=== PATIENT | male | born 1980 | race Caucasian/White ===

== ENCOUNTER 2017-07-16 10:43 | Emergency (ER) | payer OTHER, MEDICAID ==
[2017-07-16 10:48] VITALS: TEMP 97.5
--- NOTE | 2017-07-16 11:14 | CPEKG ---
Heart Rate: 91 RR Interval: 659 P-R Interval: 140 QRSD Interval: 84 QT Interval: 360 QTC Interval: 443 P [place]: 57 QRS [place]: 41 T Wave [place]: 10 EKG Severity - NORMAL ECG - EKG Impression: SINUS RHYTHM Electronically Signed By: Josue Hobbs 16-Jul-2017 11:16:51
[2017-07-16] MEDS ORDERED: ONDANSETRON 4 MG/2 ML VIAL ONE (11:18)
[2017-07-16] MEDS ORDERED: ONDANSETRON 4 MG/2 ML VIAL IVP ONE (11:19)
[2017-07-16 11:29] LABS: PLATELET COUNT 251 10^3/uL (150-400)
[2017-07-16] MEDS ORDERED: IOPAMIDOL (ISOVUE 370) 100 ML BTL IV ONE (12:35)
[2017-07-16] MEDS ORDERED: HYOSCYAMINE SULFATE 0.125 MG TAB PO ONE (13:49)
[2017-07-16] MEDS ORDERED: LIDOCAINE 2% VISCOUS 15 ML UDCUP PO ONE (13:49)
[2017-07-16] MEDS ORDERED: MAG HYDROX/AL HYDROX/SIMETH 30 ML UDCUP PO ONE (13:49)
[2017-07-16 13:56] VITALS: O2SAT 96
--- NOTE | 2017-07-16 13:57 | EDPHY ---
H & P Stated Complaint: chest and back pain and SOB starting at 0530 - Personal History Current Tetanus/Diphtheria Vaccine: Yes Current Tetanus Diphtheria and Acellular Pertussis (TDAP): Yes Tetanus Vaccine Date: < 10 years - Medical/Surgical History Hx Asthma: No Hx Chronic Respiratory Disease: No Hx Diabetes: No Hx Cardiac Disease: No Hx Renal Disease: No Hx Cirrhosis: No Hx Alcoholism: No Hx HIV/AIDS: No Hx Splenectomy or Spleen Trauma: No Other PMH: lung issues. depression, PTSD - Social History Smoking Status: Current every day smoker Time Seen by Provider: 07/16/17 10:54 HPI/ROS: Chief complaint: Chest pain History of present illness: This is a 37-year-old male who presents to the emergency department for evaluation of chest pain. He reports the onset of symptoms this morning. In addition to the pain in his chest he has some back pain between his scapula. He has had associated shortness of breath. He denies precipitating factors. He denies alleviating or aggravating factors. He describes it as a squeezing pain. He denies other associated signs or symptoms including no fevers, no cold symptoms, no nausea or vomiting, no pain or swelling in the legs. He has never had similar. Review of systems: A 10 point review of systems was obtained and other than described above was negative (Simone Renee) - Physical Exam Exam: General Appearance: Alert, nontoxic. Eyes: Pupils equal and round no pallor or injection. ENT, Mouth: Mucous membranes moist. Respiratory: There are no retractions, lungs are clear to auscultation. Cardiovascular: Regular rate and rhythm. Gastrointestinal: Abdomen is soft and non tender, no masses, bowel sounds normal. Neurological: Alert and oriented x4. Cranial nerves 2-12 grossly intact. Strength and sensation intact and symmetrical. Skin: Warm and dry, no rashes. Musculoskeletal: Neck is supple non tender. Extremities are symmetrical, full range of motion. Psychiatric: Patient is oriented X 3, there is no agitation. (Simone Renee) Constitutional: Initial Vital Signs Temperature (C) 36.4 C 07/16/17 10:45 Heart Rate 88 07/16/17 10:45 Respiratory Rate 20 07/16/17 10:45 Blood Pressure 123/81 H 07/16/17 10:45 O2 Sat (%) 97 07/16/17 10:45 O2 Delivery Mode Room Air Allergies/Adverse Reactions: No Known Allergies Allergy (Unverified 07/16/17 10:45) Home Medications: Medication Instructions Recorded Prozac 20 MG (*) 07/16/17 Seroquel 07/16/17 Medical Decision Making - Diagnostics Imaging: Discussed imaging studies w/ inbound call center representative Radiologist - Diagnostics EKG Interpretation: EKG: Complete interpretation has been separately recorded in the [employer] archive. Summary impression: Sinus rhythm, rate 91 (Josue Hobbs) Imaging Results: Imaging Impressions Chest X-Ray 07/16/17 11:00 Impression: Normal chest x-ray. Chest/Thorax CTA 07/16/17 12:18 Impression: 1. No evidence of pulmonary embolus using CT protocol. 2. Thickening and distention of the esophagus. Consider underlying reflux and esophagitis. 3. Mild anterior wedging superior endplate of T5, T6, and T8. Clinical correlation recommended with respect to any prior trauma to account for these findings. If indicated, consider DEXA scan at some point to evaluate underlying bone mineral density. Findings discussed with MARIELLE Suero at 13:08 hour, 07/16/2017. ED Course/Re-evaluation: Patient is discussed with my secondary supervising physician Dr. Vic Hobbs. Patient presents to the emergency department for chest and back discomfort. He is nontoxic. Vital signs are stable. Initial blood studies are unremarkable except D-dimer which is elevated. A CTA is performed. He does have a thickened esophagus I do believe this would be consistent with his symptoms. Some mild wedging of T5, T6, T8. He denies any actual spine pain. No history of recent trauma. He is given a GI cocktail with improvement in symptoms. He will be discharged home. Asked to take Zantac regularly. He is asked to follow up with a primary care doctor for recheck. Return precautions are given. (Simone Renee) Differential Diagnosis: Included but not limited to reflux, esophagitis, pulmonary infections, pneumothorax, cardiac dysrhythmia, ACS, pulmonary embolism (Simone Renee) - Data Points Laboratory Results: Laboratory Results 07/16/17 11:20 07/16/17 11:20 07/16/17 07/16/17 07/16/17 11:20 11:20 11:20 WBC 11.10 10^3/uL H 10^3/uL (3.80-9.50) RBC 5.32 10^6/uL 10^6/uL (4.40-6.38) Hgb 13.7 g/dL g/dL (13.7-17.5) Hct 41.2 % % (40.0-51.0) MCV 77.4 fL L fL (81.5-99.8) MCH 25.8 pg L pg (27.9-34.1) MCHC 33.3 g/dL g/dL (32.4-36.7) RDW 16.0 % H % (11.5-15.2) Plt Count 251 10^3/uL 10^3/uL (150-400) MPV 10.6 fL fL (8.7-11.7) Neut % (Auto) 72.3 % % (39.3-74.2) Lymph % (Auto) 16.9 % % (15.0-45.0) [place] % (Auto) 9.2 % % (4.5-13.0) Eos % (Auto) 0.6 % % (0.6-7.6) Baso % (Auto) 0.3 % % (0.3-1.7) Nucleat RBC Rel Count 0.0 % % (0.0-0.2) Absolute Neuts (auto) 8.02 10^3/uL H 10^3/uL (1.70-6.50) Absolute Lymphs (auto) 1.88 10^3/uL 10^3/uL (1.00-3.00) Absolute Monos (auto) 1.02 10^3/uL H 10^3/uL (0.30-0.80) Absolute Eos (auto) 0.07 10^3/uL 10^3/uL (0.03-0.40) Absolute Basos (auto) 0.03 10^3/uL 10^3/uL (0.02-0.10) Absolute Nucleated RBC 0.00 10^3/uL 10^3/uL (0-0.01) Immature Gran % 0.7 % % (0.0-1.1) Immature Gran # 0.08 10^3/uL 10^3/uL (0.00-0.10) D-Dimer 2.51 ug/mLFEU H ug/mLFEU (0.00-0.50) Sodium 142 mEq/L mEq/L (135-145) Potassium 3.8 mEq/L mEq/L (3.5-5.2) Chloride 103 mEq/L mEq/L (97-110) Carbon Dioxide 25 mEq/l mEq/l (22-31) Anion Gap 14 mEq/L mEq/L (8-16) BUN 24 mg/dL H mg/dL (7-23) Creatinine 1.1 mg/dL mg/dL (0.7-1.3) Estimated GFR > 60 Glucose 98 mg/dL mg/dL (70-100) Calcium 8.8 mg/dL mg/dL (8.5-10.4) Troponin I < 0.012 ng/mL ng/mL (0.000-0.034) Medications Given: Discontinued Medications Al Hydroxide/Mg Hydroxide (Maalox Susp) 30 ml PO ONCE ONE Stop: 07/16/17 13:50 Last Admin: 07/16/17 13:53 Dose: 30 ml Hyoscyamine Sulfate (Levsin, Hyomax-Sl) 0.25 mg PO ONCE ONE Stop: 07/16/17 13:50 Last Admin: 07/16/17 13:54 Dose: 0.25 mg Lidocaine (Lidocaine 2% Viscous) 15 ml PO ONCE ONE Stop: 07/16/17 13:50 Last Admin: 07/16/17 13:54 Dose: 15 ml Morphine Sulfate (Morphine) 4 mg IVP EDNOW ONE Stop: 07/16/17 11:02 Last Admin: 07/16/17 11:20 Dose: 4 mg Morphine Sulfate (Morphine) 4 mg IVP EDNOW ONE Stop: 07/16/17 12:03 Last Admin: 07/16/17 12:11 Dose: 4 mg Ondansetron HCl (Zofran) 4 mg IVP EDNOW ONE Stop: 07/16/17 11:20 Last Admin: 07/16/17 11:20 Dose: 4 mg Departure - Departure Disposition: Home, Routine, Self-Care Clinical Impression: Chest pain Condition: Good Instructions: Chest Pain (ED) Additional Instructions: Follow-up with your primary care doctor for recheck. Please have them recheck all findings from the emergency room Take Zantac 150 mg twice daily for the next 2 weeks If symptoms worsen or new symptoms develop return to the emergency room for recheck Referrals: [facility],. [Primary Care Provider] - As per Instructions
[2017-07-16 14:08] VITALS: BP 111/79; PULSE 87; RESP 18
== END 2017-07-16 14:08 | disposition home or self-care (01) ==
DX: R07.9 Chest pain, unspecified (principal); F17.200 Nicotine dependence, unspecified, uncomplicated
CPT/HCPCS: 96374; J2270; J2405; Q9967

== ENCOUNTER 2017-07-18 14:33 | Emergency (ER) | payer OTHER, MEDICAID ==
[2017-07-18 14:43] VITALS: BP 122/65; PULSE 84; RESP 16; TEMP 98.6; O2SAT 94
--- NOTE | 2017-07-18 15:58 | EDPHY ---
H & P Time Seen by Provider: 07/18/17 15:49 HPI/ROS: CHIEF COMPLAINT: Continued thoracic back pain HISTORY OF PRESENT ILLNESS: 29-year-old male seen emergency department 2 days ago for complaints of thoracic back pain and chest pain which of he had an elevated D-dimer, subsequently had CT angiography of the chest which was negative for PE or vasculopathy. He has been taking ibuprofen with mild relief of symptoms. Complaining of thoracic back pain in the paraspinous region which is reproducible with movement. Nonpleuritic. No trauma. No syncope no near syncope. No peripheral paresthesia, weakness, numbness. 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 Appears uncomfortable when he is asked to sit up.. 2) HEAD: Normocephalic, atraumatic 3) HEENT: Pupils equal, round, reactive to light bilaterally. Sclera anicteric. 4) NECK: Full range of motion, no meningeal signs. 5) LUNGS: Clear auscultation bilaterally, no wheezes, no rhonchi, no retractions. 6) HEART: Regular rate and rhythm, no murmur, no heave, no gallop. 7) ABDOMEN: No guarding, no rebound, no focal tenderness n, 8) MUSCULOSKELETAL: Moving all extremities, no focal areas of tenderness, no obvious trauma. No peripheral edema or discoloration. 9) BACK: No CVA tenderness, no midline vertebral tenderness, no fluctuance, no step-off, no obvious trauma, no visual or palpable abnormality. 10) SKIN: No rash, no petechiae. 11) Psychiatric: Patient is oriented X 3, there is no agitation. 12) NEURO: Awake, alert, and oriented to person, place and time. Answers questions appropriately. There were no obvious focal neurologic abnormalities. No cerebellar dysfunction. Normal steady gait. Upper and lower extremities bilaterally with strength 5 / 5, reflexes 2+. DIFFERENTIAL DIAGNOSIS: In no particular include but limited to spinal infectious etiology, acute muscular strain, discogenic etiology Smoking Status: Current every day smoker Constitutional: Initial Vital Signs Temperature (C) 37 C 07/18/17 14:40 Heart Rate 84 07/18/17 14:40 Respiratory Rate 16 07/18/17 14:40 Blood Pressure 122/65 H 07/18/17 14:40 O2 Sat (%) 94 07/18/17 14:40 O2 Delivery Mode Room Air Allergies/Adverse Reactions: No Known Allergies Allergy (Verified 07/18/17 14:38) Home Medications: Medication Instructions Recorded Prozac 20 MG (*) 07/16/17 Seroquel 07/16/17 Cyclobenzaprine [Flexeril 10 MG 10 mg PO TID #15 tab 07/18/17 (RX)] Lidocaine [Lidoderm] 1 each TP BID #30 adh..patch 07/18/17 MDM/Departure - [facility] ED Course/Re-evaluation: 3:54 p.m.: I reviewed the patient's old medical records including his imaging studies. He had CT angiography of the chest 2 days ago showing no acute abnormality, no evidence of dissection or pulmonary embolus. On exam in the ER today he has no midline thoracic spine pain. He is tender to palpation bilateral paraspinous thoracic region. Discussed his wedge abnormalities seen on CT scan however absence of midline pain I think that this is less than likely specific etiology of his pain.We discussed that I think his symptoms arm more than likely secondary to acute muscular strain. Plan will be discharged with Lidoderm patches, Flexeril, cold packs and follow up at [facility]. He feels comfortable with this plan. All questions and concerns addressed by myself. Care of patient under supervision of secondary supervising physician Dr Paz. - Depart Disposition: Home, Routine, Self-Care Clinical Impression: Strain of muscle and tendon of back wall of thorax, initial encounter Condition: Good Instructions: Thoracic Back Strain (ED) Additional Instructions: Seek medical attention if you develop new or worsening pain, if you develop bladder or bowel dysfunction, numbness around your perineum, foot drop, or any other symptoms that concern you. Prescriptions: Cyclobenzaprine [Flexeril 10 MG (RX)] 10 mg PO TID #15 tab Lidocaine [Lidoderm] 1 each TP BID #30 adh..patch Referrals: [facility] [Provider Group] - 2-3 days, call for appt.
== END 2017-07-18 16:15 | disposition home or self-care (01) ==
DX: S29.012A Strain of muscle and tendon of back wall of thorax, initial encounter (principal); F17.200 Nicotine dependence, unspecified, uncomplicated; X58.XXXA Exposure to other specified factors, initial encounter

== ENCOUNTER 2017-08-03 09:11 | Emergency (ER) | payer MEDICAID ==
--- NOTE | 2017-08-03 09:17 | EDPHY ---
HPI/HX/ROS/PE/MDM Narrative: CHIEF COMPLAINT: Seizure HPI: This patient is a 37 year old male arriving via EMS following a witnessed seizure this morning. His heard a crashing sound, which woke her from sleep. She found the patient rigid on the ground with tonic-clonic seizure activity. This lasted about 3.5 to 4 minutes. She states that as he became less rigid, he continued "seizing and grunting" for another minute. The patient had an episode last night of confusion and disorientation while at work, and he is not sure if he had another seizure at that time. He was evaluated 20 years ago at age 18 for possible seizures for which he took antiepileptics, but a neurologist at that time found no evidence of seizure disorder and he was taken off his seizure medication. Currently, the patient continues to feel slightly confused. He denies benzodiazepine or alcohol use. Per EMS report, BGL was within normal limits, vitals stable in transport.He denies fever, headache, neck pain, chest pain, shortness of breath, weakness, or other associated symptoms. REVIEW OF SYSTEMS: Aside from elements discussed in the HPI, a comprehensive 10-point review of systems was reviewed and is negative. PMH: Depression, PTSD (Seroquel, Prozac). SOCIAL HISTORY: . at bedside. Recently moved to [place]. Employed. PHYSICAL EXAM: General:Patient is alert, in no acute distress. ENT:Eyes are normal to inspection. Lateral tongue abrasions. ENT inspection otherwise normal. Neck: Normal inspection. Full range of motion. Respiratory:No respiratory distress. Breath sounds normal bilaterally. Cardiovascular: Regular rate and rhythm. Strong peripheral pulses. Normal cap refill. Abdomen:The abdomen is nontender to palpation. There are no peritoneal signs. There are normal bowel sounds. Back: Normal to inspection. No tenderness to palpation. Skin: Normal color. No rash. Warm and dry. Extremities: Normal appearance. Full range of motion. Neuro: Oriented x3. Normal motor function. Normal sensory function. ED Course: 09:15 Met EMS at bedside. 37 y/o male presents following witnessed tonic-clonic seizure activity this morning. Exam reveals lateral tongue abrasions. Plan for CT head. Plan for EKG, labs including CBC, chemistries, troponin. IV established. Plan to administer 1L IV NS. EKG was ordered and interpreted by myself. Please see [employer] system for official reading. Sinus tachycardia, borderline T abnormalities in inferior leads. 09:[address] Pitt, radiologist. CT head negative for acute processes. 10:00 Plan to administer 600mg PO Ibuprofen for pain relief. Reviewed laboratory studies. Troponin negative. Plan to consult with neurologist cardiology consultants prior to patient discharge. 11:[address] Yeboah, neurologist. We disussed the fact that patient had previously been on an antiepileptic. He will follow up with this patient in an outpatient setting. He does not recommending starting medication for seizure prevention at this time. Reassessed patient and discussed results. Plan to discharge patient home in good condition. He will follow up up with neurology as above. Return precautions discussed. He is comfortable with this plan. MDM: This patient presents with witnessed tonic-clonic seizure in setting of previous history of seizures, not currently on meds. CTH is negative for abnormalities. Patient has returned to normal mental status and there are no signs of trauma. I think he is safe for outpatient management. He was advised not to drive etc. - Data Points Imaging Results: Imaging Impressions Head CT 08/03/17 09:18 Impression: 1. Head CT within normal limits. No seizure focus identified. 2. Right maxillary sinus air-fluid level of undetermined etiology. Results called and discussed with Guillermo Salinas MD, at 08/03/2017 9:47 General information for patients regarding this examination can be found at [email or web address]. If you have questions or comments about this report, please contact me at (hospital) or [phone] (cell). Imaging: Discussed imaging studies w/ budget assistant Radiologist Laboratory Results: Laboratory Results 08/03/17 09:15 08/03/17 09:15 08/03/17 08/03/17 09:15 09:15 WBC 11.20 10^3/uL H 10^3/uL (3.80-9.50) RBC 5.24 10^6/uL 10^6/uL (4.40-6.38) Hgb 13.7 g/dL g/dL (13.7-17.5) Hct 43.2 % % (40.0-51.0) MCV 82.4 fL fL (81.5-99.8) MCH 26.1 pg L pg (27.9-34.1) MCHC 31.7 g/dL L g/dL (32.4-36.7) RDW 16.2 % H % (11.5-15.2) Plt Count 277 10^3/uL 10^3/uL (150-400) MPV 10.4 fL fL (8.7-11.7) Neut % (Auto) 72.5 % % (39.3-74.2) Lymph % (Auto) 17.3 % % (15.0-45.0) [place] % (Auto) 6.4 % % (4.5-13.0) Eos % (Auto) 1.8 % % (0.6-7.6) Baso % (Auto) 0.4 % % (0.3-1.7) Nucleat RBC Rel Count 0.0 % % (0.0-0.2) Absolute Neuts (auto) 8.11 10^3/uL H 10^3/uL (1.70-6.50) Absolute Lymphs (auto) 1.94 10^3/uL 10^3/uL (1.00-3.00) Absolute Monos (auto) 0.72 10^3/uL 10^3/uL (0.30-0.80) Absolute Eos (auto) 0.20 10^3/uL 10^3/uL (0.03-0.40) Absolute Basos (auto) 0.05 10^3/uL 10^3/uL (0.02-0.10) Absolute Nucleated RBC 0.00 10^3/uL 10^3/uL (0-0.01) Immature Gran % 1.6 % H % (0.0-1.1) Immature Gran # 0.18 10^3/uL H 10^3/uL (0.00-0.10) Sodium 144 mEq/L mEq/L (135-145) Potassium 4.4 mEq/L mEq/L (3.5-5.2) Chloride 104 mEq/L mEq/L (97-110) Carbon Dioxide 17 mEq/l L mEq/l (22-31) Anion Gap 23 mEq/L H mEq/L (8-16) BUN 24 mg/dL H mg/dL (7-23) Creatinine 1.1 mg/dL mg/dL (0.7-1.3) Estimated GFR > 60 Glucose 133 mg/dL H mg/dL (70-100) Calcium 8.7 mg/dL mg/dL (8.5-10.4) Troponin I < 0.012 ng/mL ng/mL (0.000-0.034) Medications Given: Discontinued Medications Sodium Chloride (Ns) 1,000 mls @ 0 mls/hr IV ONCE ONE PRN Reason: Wide Open Stop: 08/03/17 09:24 Last Admin: 08/03/17 09:24 Dose: 1,000 mls Ibuprofen (Motrin) 600 mg PO EDNOW ONE Stop: 08/03/17 10:01 Last Admin: 08/03/17 10:45 Dose: 600 mg General Initial Vital Signs: Initial Vital Signs Temperature (C) 36.6 C 08/03/17 09:13 Heart Rate 120 H 08/03/17 09:13 Respiratory Rate 18 08/03/17 09:13 Blood Pressure 134/86 H 08/03/17 09:13 O2 Sat (%) 95 08/03/17 09:13 O2 Delivery Mode Room Air Allergies/Adverse Reactions: No Known Allergies Allergy (Verified 07/18/17 14:38) Home Medications: Medication Instructions Recorded Prozac 20 MG (*) 07/16/17 Seroquel 07/16/17 Departure - Departure Disposition: Home, Routine, Self-Care Clinical Impression: Seizure Condition: Good Instructions: New-Onset Seizure in Adults (ED) Additional Instructions: 1. Follow-up with a neurologist within 72 hours. Additional testing will likely need to be done for evaluation of your seizure. 2. Return to the Emergency Department for recurrent seizure, fever, headache, confusion, numbness, weakness, or other concerns. 3. No driving or dangerous activity such as swimming in a pool or riding a ski lift which could put you or someone else a danger in the event of recurrent seizure until you are cleared by a neurologist. Referrals: Kieran Yeboah DO [Doctor of Osteopathy] - As per Instructions Report Scribed for: Guillermo Salinas Report Scribed by: Kendal Beckett Date of Report: 08/03/17 Time of Report: 10:27 Physician Review and Approval Statement: Portions of this note were transcribed by an ED scribe. I personally performed the history, physical exam, and medical decision making; and confirm the accuracy of the information in the transcribed note.
--- NOTE | 2017-08-03 09:22 | CPEKG ---
Heart Rate: 113 RR Interval: 531 P-R Interval: 124 QRSD Interval: 82 QT Interval: 320 QTC Interval: 439 P Fraser: 56 QRS Fraser: 53 T Wave Fraser: -2 EKG Severity - BORDERLINE ECG - EKG Impression: SINUS TACHYCARDIA EKG Impression: BORDERLINE T ABNORMALITIES, INFERIOR LEADS Electronically Signed By: Matilde Paz 04-Aug-2017 22:44:22
[2017-08-03] MEDS ORDERED: NS 1,000 ML IV ONE (09:23)
[2017-08-03 09:26] LABS: PLATELET COUNT 277 10^3/uL (150-400)
[2017-08-03] MEDS ORDERED: IBUPROFEN 600 MG TAB PO ONE (10:00)
[2017-08-03 10:48] VITALS: BP 115/81
== END 2017-08-03 11:52 | disposition home or self-care (01) ==
LOC: EDUNIT#
DX: R56.9 Unspecified convulsions (principal)

== ENCOUNTER 2017-08-04 19:55 | Emergency (ER) | payer MEDICAID ==
--- NOTE | 2017-08-04 20:18 | EDPHY ---
H & P Time Seen by Provider: 08/04/17 19:56 HPI/ROS: CHIEF COMPLAINT: Sore all over, tongue swelling after seizure yesterday HISTORY OF PRESENT ILLNESS: 37-year-old male presents with multiple complaints. He had a generalized seizure yesterday and bit his tongue. Since then he has had difficulty speaking because of tongue swelling and states that his family is unable to understand is speaking. He also complains of diffuse myalgias. He is taking ibuprofen 800 mg every 8 hr for myalgias with some relief. He also has a fuzzy feeling in his brain and feels that he needs to take an extra 1-2 seconds to respond to questions. No headache and no recurrent seizure. He also feels somewhat depressed because he has been unable to see his daughter who lives in another [place]. Denies suicidal or homicidal ideation. REVIEW OF SYSTEMS: Constitutional: No fever, no chills Eyes: No visual changes ENT: No sore throat Respiratory: No cough, no shortness of breath Cardiac: No chest pain Gastrointestinal: No nausea, no vomiting, no abdominal pain Genitourinary: no dysuria Skin: No rash Neurological: No headache, no numbness, no weakness Psychiatric: depression Past Medical/Surgical History: Seizure disorder Depression Social History: Smoking Status: Current every day smoker Physical Exam: General Appearance: Alert, pleasant, speech is clear Eyes: Pupils equal and round, no conjunctival pallor or injection ENT, Mouth: Mucous membranes moist Neck: Normal inspection Respiratory: Lungs are clear to auscultation Cardiovascular: Regular rate and rhythm Gastrointestinal: Abdomen is soft and nontender Neurological: Alert, oriented x3, cranial nerves II through XII intact, motor 5 /5, sensory intact to light touch, normal gait. Skin: Warm and dry Extremities: Diffuse mild tenderness, no swelling Psychiatric: Mood and affect normal, normal thought process Constitutional: Initial Vital Signs Temperature (C) 36.6 C 08/04/17 20:00 Heart Rate 82 08/04/17 20:00 Respiratory Rate 18 08/04/17 20:00 Blood Pressure 138/96 H 08/04/17 20:00 O2 Sat (%) 97 08/04/17 20:00 O2 Delivery Mode Room Air Allergies/Adverse Reactions: No Known Allergies Allergy (Verified 07/18/17 14:38) Home Medications: Medication Instructions Recorded Prozac 20 MG (*) 07/16/17 Seroquel 07/16/17 Medical Decision Making ED Course/Re-evaluation: This patient presents with a tongue abrasion and myalgias after a generalized seizure yesterday. Old medical record from yesterday's ED visit reviewed by me. His speech is clearly understandable and the tongue abrasion is minor. He also has diffuse myalgias after the seizure. I do not suspect rhabdomyolysis and do not feel that testing is indicated. I have encouraged him to take ibuprofen as needed for myalgias. Departure - Departure Disposition: Home, Routine, Self-Care Clinical Impression: Myalgia Abrasion of tongue Qualifiers: Encounter type: initial encounter Qualified Code(s): S00.512A - Abrasion of oral cavity, initial encounter Condition: Good Instructions: Musculoskeletal Pain (ED) Referrals: Horace White MD [Medical Doctor] - As per Instructions [facility],. [Clinic] - As per Instructions
[2017-08-04 21:45] VITALS: BP 125/89
== END 2017-08-04 21:46 | disposition home or self-care (01) ==
LOC: EDUNIT#
DX: S00.512A Abrasion of oral cavity, initial encounter (principal); M79.1 Myalgia; F17.200 Nicotine dependence, unspecified, uncomplicated; W50.3XXA Accidental bite by another person, initial encounter; Y99.8 Other external cause status; Y93.89 Activity, other specified

== ENCOUNTER → 2017-08-16 | Outpatient (CLI) | payer MEDICAID ==
--- NOTE | 2017-08-16 12:46 | CPEEG ---
[f rep st] ELECTROENCEPHALOGRAM ELECTROENCEPHALOGRAM DATE OF STUDY: 08/16/2017 DATE OF INTERPRETATION: 08/16/2017. INTERPRETATION: Normal EEG during wakefulness and brief drowsiness. There were no potentially epileptogenic abnormalities present in the recording. A repeat 4-hour video EEG study may be helpful, if clinically indicated. REPORT: This EEG contains 9 Hz alpha activity over the posterior head regions. There was no abnormal activation at rest, during photic stimulation or hyperventilation. The patient became drowsy very briefly during the study. There was no abnormal activation during brief drowsiness or during times of arousal. The patient did not fall asleep during the study. A repeat 4-hour video EEG may be helpful to capture sleep, if clinically indicated. /[id number]/MODL MTDD
== END ==
LOC: FCPNEURO 07:38
PROVIDERS: ATTEND Psychiatry & Neurology Neurology
DX: R56.9 Unspecified convulsions (principal)

== ENCOUNTER → 2017-08-22 | Outpatient (CLI) | payer MEDICAID ==
[~2017-08-22] MED LIST: GADOBUTROL 10 ML VIAL IVP ONE
== END ==
LOC: FIMAGING 10:12
PROVIDERS: ATTEND Psychiatry & Neurology Neurology
DX: R56.9 Unspecified convulsions (principal)
CPT/HCPCS: A9585

== ENCOUNTER 2017-09-07 13:02 | Emergency (ER) | payer MEDICAID ==
--- NOTE | 2017-09-07 13:09 | EDPHY ---
H & P Time Seen by Provider: 09/07/17 13:06 HPI/ROS: CHIEF COMPLAINT: Seizure HISTORY OF PRESENT ILLNESS: The patient presents the ED after reported witnessed recurrent seizure. The patient has a history of seizure disorder. He recently restarted Keppra. The patient has had follow up with Dr. Yeboah from Neurology. The patient has not been compliant with taking his Keppra according to Dr. Yeboah. The patient tells me that he did miss his morning dose. There is no history of a fall or trauma. The patient denies fever, cough or congestion. He denies additional acute complaints. REVIEW OF SYSTEMS: A comprehensive 10 point review of systems is otherwise negative aside from elements mentioned in the history of present illness. Source: Patient Exam Limitations: No limitations - Personal History Tetanus Vaccine Date: < 10 years - Medical/Surgical History Hx Asthma: No Hx Chronic Respiratory Disease: No Hx Diabetes: No Hx Cardiac Disease: No Hx Renal Disease: No Hx Cirrhosis: No Hx Alcoholism: No Hx HIV/AIDS: No Hx Splenectomy or Spleen Trauma: No Other PMH: lung issues. depression, PTSD, seizures, - Social History Smoking Status: Current every day smoker - Physical Exam Exam: General Appearance: Alert, no distress Eyes: Pupils equal and round no pallor or injection ENT, Mouth: Mucous membranes moist Respiratory: There are no retractions, lungs are clear to auscultation Cardiovascular: Regular rate and rhythm Gastrointestinal: Abdomen is soft and nontender, no masses, bowel sounds normal Neurological: A&O, normal motor function, normal sensory exam, normal cranial nerves Skin: Warm and dry, no rashes Musculoskeletal: Neck is supple nontender Extremities: symmetrical, full range of motion Constitutional: Initial Vital Signs Temperature (C) 37.1 C 09/07/17 13:06 Heart Rate 104 H 09/07/17 13:06 Respiratory Rate 16 09/07/17 13:06 Blood Pressure 133/81 H 09/07/17 13:06 O2 Sat (%) 94 09/07/17 13:06 O2 Delivery Mode Room Air Allergies/Adverse Reactions: No Known Allergies Allergy (Verified 07/18/17 14:38) Home Medications: Medication Instructions Recorded Prozac 20 MG (*) 07/16/17 Seroquel 07/16/17 Baclofen [Baclofen 10 mg (*)] 09/07/17 Keppra 09/07/17 Meloxicam 09/07/17 Medical Decision Making ED Course/Re-evaluation: I reviewed the patient's outpatient medical records including an MRI performed earlier this month for recurrent seizure. It demonstrated no evidence of acute disease. The patient was given a dose of his Keppra in the ED. I reviewed with Dr. Morfin who informs me the patient is not a reliable and likely is non-compliant. The patient will be discharged from the emergency department. I have stressed to him the importance of taking his Keppra twice a day as directed. He should follow up with his neurologist as scheduled. Differential Diagnosis: Differential diagnosis considered includes dehydration, pseudo-seizure, epilepsy , status epilepticus - Data Points Laboratory Results: Laboratory Results 09/07/17 12:45 09/07/17 12:45 09/07/17 09/07/17 12:45 12:45 WBC 9.09 10^3/uL 10^3/uL (3.80-9.50) RBC 5.56 10^6/uL 10^6/uL (4.40-6.38) Hgb 14.5 g/dL g/dL (13.7-17.5) Hct 46.4 % % (40.0-51.0) MCV 83.5 fL fL (81.5-99.8) MCH 26.1 pg L pg (27.9-34.1) MCHC 31.3 g/dL L g/dL (32.4-36.7) RDW 15.2 % % (11.5-15.2) Plt Count 277 10^3/uL 10^3/uL (150-400) MPV 10.3 fL fL (8.7-11.7) Neut % (Auto) 59.0 % % (39.3-74.2) Lymph % (Auto) 27.9 % % (15.0-45.0) [place] % (Auto) 8.6 % % (4.5-13.0) Eos % (Auto) 2.1 % % (0.6-7.6) Baso % (Auto) 0.7 % % (0.3-1.7) Nucleat RBC Rel Count 0.0 % % (0.0-0.2) Absolute Neuts (auto) 5.37 10^3/uL 10^3/uL (1.70-6.50) Absolute Lymphs (auto) 2.54 10^3/uL 10^3/uL (1.00-3.00) Absolute Monos (auto) 0.78 10^3/uL 10^3/uL (0.30-0.80) Absolute Eos (auto) 0.19 10^3/uL 10^3/uL (0.03-0.40) Absolute Basos (auto) 0.06 10^3/uL 10^3/uL (0.02-0.10) Absolute Nucleated RBC 0.00 10^3/uL 10^3/uL (0-0.01) Immature Gran % 1.7 % H % (0.0-1.1) Immature Gran # 0.15 10^3/uL H 10^3/uL (0.00-0.10) Sodium 149 mEq/L H mEq/L (135-145) Potassium 4.3 mEq/L mEq/L (3.5-5.2) Chloride 104 mEq/L mEq/L (97-110) Carbon Dioxide 16 mEq/l L mEq/l (22-31) Anion Gap 29 mEq/L H mEq/L (8-16) BUN 20 mg/dL mg/dL (7-23) Creatinine 1.3 mg/dL mg/dL (0.7-1.3) Estimated GFR > 60 Glucose 80 mg/dL mg/dL (70-100) Calcium 9.5 mg/dL mg/dL (8.5-10.4) Departure - Departure Disposition: Home, Routine, Self-Care Clinical Impression: Seizure disorder Condition: Good Instructions: Recurrent Seizures in Adults (ED) Additional Instructions: 1. Follow up with your neurologist as scheduled. 2. Take your anti seizure medication twice a day as directed. It is imperative that you do not miss any doses of the medications. Referrals: PORTILLO BAIG [Other] - As per Instructions Kieran Yeboah DO [Doctor of Osteopathy] - As per Instructions
[2017-09-07 13:28] LABS: PLATELET COUNT 277 10^3/uL (150-400)
[2017-09-07 14:01] VITALS: BP 126/72
--- NOTE | 2017-09-07 14:29 | ASMTCMCOM ---
CM Note CM Note Notes: Patient expressed challenges in finding transportation to a neurology appointment in [place]. I sent his demographics to our Medicaid district resource officer and requested that she contact patient with information about Medicaid transportation. I gave patient and his bus vouchers so that they could get home from the hospital. They will wait to hear from [place] regarding Medicaid transport options. Date Signed: 09/07/2017 02:29 PM Electronically Signed By:Iris Wilkerson RN
== END 2017-09-07 14:18 | disposition home or self-care (01) ==
LOC: EDUNIT#
DX: G40.909 Epilepsy, unspecified, not intractable, without status epilepticus (principal); F17.200 Nicotine dependence, unspecified, uncomplicated

== ENCOUNTER 2017-10-31 06:24 | Emergency (ER) | payer MEDICAID ==
[2017-10-31] MEDS ORDERED: LORazepam 1 MG TAB PO ONE (06:43)
--- NOTE | 2017-10-31 06:46 | EDPHY ---
H & P Stated Complaint: FLASH BACKS/PTSD Source: Patient - Personal History Current Tetanus Diphtheria and Acellular Pertussis (TDAP): Yes Tetanus Vaccine Date: < 10 years - Medical/Surgical History Hx Asthma: No Hx Chronic Respiratory Disease: No Hx Diabetes: No Hx Cardiac Disease: No Hx Renal Disease: No Hx Cirrhosis: No Hx Alcoholism: Yes Hx HIV/AIDS: No Hx Splenectomy or Spleen Trauma: No Other PMH: lung issues. 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 This happened approximately an hour ago. This altercation upset him he started stating that he felt like his PTS was acting up and he felt very anxious and he drove here to the emergency room. He is requesting to speak to mental health. He additionally reports that he has been drinking alcohol more often. He denies current suicidal ideation but does state that he suffers from depression. He is feeling more depressed and is requesting to speak to mental health. He is a patient [facility]. Past Medical History: PTSD, anxiety, depression Past Surgical History: No recent surgery Social History: Lives locally, frequent alcohol use, smokes tobacco, denies illicit drugs. Family History: Noncontributory ROS REVIEW OF SYSTEMS: A comprehensive 10 point review of systems is otherwise negative aside from elements mentioned in the history of present illness. Exam Constitutional nontoxic appearing in no acute distress, slightly anxious triage nursing summary reviewed, vital signs reviewed, awake/alert. Eyes normal conjunctivae and sclera, EOMI, PERRLA. HENT normal inspection, atraumatic, moist mucus membranes, no epistaxis, neck supple/ no meningismus, no raccoon eyes. Respiratory clear to auscultation bilaterally, normal breath sounds, no respiratory distress, no wheezing. Cardiovascular rate normal, regular rhythm, no murmur, no edema, distal pulses normal. Gastrointestinal soft, non-tender, no rebound, no guarding, normal bowel sounds, no distension, no pulsatile mass. Genitourinary no CVA tenderness. Musculoskeletal no midline vertebral tenderness, full range of motion, no calf swelling, no tenderness of extremities, no meningismus, good pulses, neurovascularly intact. Skin pink, warm, & dry, no rash, skin atraumatic. Neurologic awake, alert and oriented x 3, AAOx3, moves all 4 extremities equally, motor intact, sensory intact, CN II-XII intact, normal cerebellar, normal vision, normal speech. Psychiatric slightly anxious, depressed Heme/Lymph/Immune no lymphadenopathy. Differential Diagnosis: Includes but is not limited to in a particular order: Acute anxiety, PTSD, depression, mood disorder, underlying mental illness. Substance abuse. Medical Decision Making: Plan for this patient will obtain blood work and drug screen for medical clearance. Patient is voluntary. He would like to speak to mental health. He is a patient [facility]. He is not suicidal I do not feel like he would benefit from a M1 hold. Will medically clear him and then he can meet with mental health for follow-up care in resources. 1 mg Ativan p.o. As been ordered as well. Re-evaluation: 0646: 1 mg p. o. Ativan ordered. 0700: Signed over to Dr. Hobbs 7am Shift-change. Pending blood work drug screen. And would like to speak to mental health. (Yasir Villalobos) Constitutional: Initial Vital Signs Temperature (C) 36.5 C 10/31/17 06:29 Heart Rate 96 10/31/17 06:29 Respiratory Rate 16 10/31/17 06:29 Blood Pressure 134/93 H 10/31/17 06:29 O2 Sat (%) 97 10/31/17 06:29 O2 Delivery Mode Room Air Allergies/Adverse Reactions: No Known Allergies Allergy (Verified 07/18/17 14:38) Home Medications: Medication Instructions Recorded Prozac 20 MG (*) 07/16/17 Seroquel 07/16/17 Baclofen [Baclofen 10 mg (*)] 09/07/17 Keppra 09/07/17 Meloxicam 09/07/17 Medical Decision Making Other Provider: I assumed care of the patient at 0700. The patient was medically cleared for psychiatric evaluation at 8:30 a.m.. The patient was evaluated by [facility]. He would like to go and be discharged to attend an alcoholics anonymous meeting. The patient does contract for safety. He has a follow-up appointment in the week of November at [facility]. He does not currently meet criteria for a involuntary psychiatric hold. He will be discharged and follow up with alcoholics anonymous and [facility] is an outpatient. (Josue Hobbs) - Data Points Laboratory Results: Laboratory Results 10/31/17 06:50 10/31/17 06:50 10/31/1718 10/31/17 08:00 06:50 06:50 WBC 8.93 10^3/uL 10^3/uL (3.80-9.50) RBC 5.17 10^6/uL 10^6/uL (4.40-6.38) Hgb 13.6 g/dL L g/dL (13.7-17.5) Hct 42.2 % % (40.0-51.0) MCV 81.6 fL fL (81.5-99.8) MCH 26.3 pg L pg (27.9-34.1) MCHC 32.2 g/dL L g/dL (32.4-36.7) RDW 14.6 % % (11.5-15.2) Plt Count 263 10^3/uL 10^3/uL (150-400) MPV 10.6 fL fL (8.7-11.7) Neut % (Auto) 65.3 % % (39.3-74.2) Lymph % (Auto) 21.5 % % (15.0-45.0) [place] % (Auto) 8.7 % % (4.5-13.0) Eos % (Auto) 3.7 % % (0.6-7.6) Baso % (Auto) 0.4 % % (0.3-1.7) Nucleat RBC Rel Count 0.0 % % (0.0-0.2) Absolute Neuts (auto) 5.82 10^3/uL 10^3/uL (1.70-6.50) Absolute Lymphs (auto) 1.92 10^3/uL 10^3/uL (1.00-3.00) Absolute Monos (auto) 0.78 10^3/uL 10^3/uL (0.30-0.80) Absolute Eos (auto) 0.33 10^3/uL 10^3/uL (0.03-0.40) Absolute Basos (auto) 0.04 10^3/uL 10^3/uL (0.02-0.10) Absolute Nucleated RBC 0.00 10^3/uL 10^3/uL (0-0.01) Immature Gran % 0.4 % % (0.0-1.1) Immature Gran # 0.04 10^3/uL 10^3/uL (0.00-0.10) Sodium 146 mEq/L H mEq/L (135-145) Potassium 4.2 mEq/L mEq/L (3.3-5.0) Chloride 104 mEq/L mEq/L (97-110) Carbon Dioxide 27 mEq/l mEq/l (22-31) Anion Gap 15 mEq/L mEq/L (8-16) BUN 26 mg/dL H mg/dL (7-23) Creatinine 1.1 mg/dL mg/dL (0.7-1.3) Estimated GFR > 60 Glucose 111 mg/dL H mg/dL (70-100) Calcium 8.9 mg/dL mg/dL (8.5-10.4) Urine Opiates Screen NEGATIVE (NEGATIVE) Urine Barbiturates NEGATIVE (NEGATIVE) Ur Phencyclidine Scrn NEGATIVE (NEGATIVE) Ur Amphetamine Screen NEGATIVE (NEGATIVE) U Benzodiazepines Scrn NEGATIVE (NEGATIVE) Urine Cocaine Screen NEGATIVE (NEGATIVE) U Marijuana (THC) Screen NEGATIVE (NEGATIVE) Ethyl Alcohol < 10 mg/dL mg/dL (0-10) Medications Given: Discontinued Medications Lorazepam (Ativan) 1 mg PO ONCE ONE Stop: 10/31/17 06:44 Last Admin: 10/31/17 07:02 Dose: 1 mg Departure - Departure Disposition: Home, Routine, Self-Care Clinical Impression: PTSD (post-traumatic stress disorder) Condition: Good Instructions: Post Traumatic Stress Disorder (ED) Additional Instructions: 1. Please follow-up with the mental health resources provided in the ED today. 2. [facility] does operate a 24/ psychiatric crisis unit located at [facility]. The telephone number for the 24 hour crisis center is [phone]. 3. Please return to the ED if you are feeling suicidal, having thoughts of harming yourself/others or should you feel unsafe or have worsening symptoms. Referrals: [facility],. [Clinic] - As per Instructions
[2017-10-31 06:58] LABS: PLATELET COUNT 263 10^3/uL (150-400)
[2017-10-31 11:44] VITALS: BP 122/76
== END 2017-10-31 11:49 | disposition home or self-care (01) ==
DX: F43.10 Post-traumatic stress disorder, unspecified (principal); F17.200 Nicotine dependence, unspecified, uncomplicated
CPT/HCPCS: 80305; G0480

== ENCOUNTER 2017-11-18 07:48 | Emergency (ER) | payer MEDICAID ==
--- NOTE | 2017-11-18 08:03 | EDPHY ---
HPI/HX/ROS/PE/MDM Narrative: CHIEF COMPLAINT: "Apparently I had a seizure" HPI: The patient is a 37 y/o male with a known seizure disorder arriving via EMS for evaluation after a witnessed seizure this morning while at work. 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 The patient disagrees with this report and says he was fully alert and attempted to decline transport. He denies any complaints, though does say "apparently I have a head abrasion. I feel fine." He is declining all treatments here and is only offering short, minimally cooperative answers during assessment. He reports his last seizure was in September and he has not missed any doses of his Keppra recently. REVIEW OF SYSTEMS: Aside from elements discussed in the HPI, a comprehensive 10-point review of systems was reviewed and is negative. PMH: Seizure disorder - Keppra SOCIAL HISTORY: . Employed. Lives in [place]. PHYSICAL EXAM: General:Patient is alert, in no acute distress. Head: Abrasion left frontal scalp ENT:Eyes are normal to inspection. ENT inspection normal. Neck: Normal inspection. Full range of motion. Respiratory:No respiratory distress. Breath sounds normal bilaterally. Cardiovascular: Regular rate and rhythm. Strong peripheral pulses. Normal cap refill. Abdomen:The abdomen is nontender to palpation. There are no peritoneal signs. Back: Normal to inspection. No tenderness to palpation. Skin: Normal color. No rash. Warm and dry. Extremities: Normal appearance. Full range of motion. Neuro: Oriented x3. Normal motor function. Normal sensory function. ED Course: This is a 37 y/o male with a history of a seizure disorder who presents for evaluation following a witnessed seizure this morning. On exam he has a minor left frontal scalp abrasion and is neurovascularly intact. He is refusing any medication including a dose of his Keppra or intervention here and is only staying in the ED to wait for his to pick him up. Patient is standing in the doorway fully-dressed and requesting to leave the ED. He has been provided standard seizure disorder care and follow up instructions as well as precautions. General Time Seen by Provider: 11/18/17 07:58 Initial Vital Signs: Initial Vital Signs Temperature (C) 36.9 C 11/18/17 07:52 Heart Rate 97 11/18/17 07:52 Respiratory Rate 18 13/18 07:52 Blood Pressure 114/84 H 11/18/17 07:52 O2 Sat (%) 96 11/18/17 07:52 O2 Delivery Mode Room Air Allergies/Adverse Reactions: No Known Allergies Allergy (Verified 07/18/17 14:38) Home Medications: Medication Instructions Recorded Prozac 20 MG (*) 07/16/17 Seroquel 07/16/17 Keppra 09/07/17 Meloxicam 09/07/17 Departure - Departure Disposition: Home, Routine, Self-Care Clinical Impression: Seizure disorder Condition: Good Instructions: Recurrent Seizures in Adults (ED) Additional Instructions: Take all medications as directed. Follow up with your neurologist for evaluation of your breakthrough seizures. Do not drive or perform other activities that could put you or others at risk before clearance from neurologist to do so. Return to the ED for severe headache, weakness, numbness, confusion, speech difficulty, or other worsening of condition. Referrals: Gurvinder Brown MD [Medical Doctor] - As per Instructions Report Scribed for: Guillermo Salinas Report Scribed by: Annabelle Granados Date of Report: 11/18/17 Time of Report: 08:03 Physician Review and Approval Statement: Portions of this note were transcribed by an ED scribe. I personally performed the history, physical exam, and medical decision making; and confirm the accuracy of the information in the transcribed note.
[2017-11-18 08:50] VITALS: BP 117/85
== END 2017-11-18 08:50 | disposition home or self-care (01) ==
LOC: EDUNIT#
DX: G40.909 Epilepsy, unspecified, not intractable, without status epilepticus (principal)

== ENCOUNTER 2017-11-18 11:37 | Emergency (ER) | payer MEDICAID ==
[2017-11-18] MEDS ORDERED: LORazepam 1 MG TAB PO ONE (11:41)
--- NOTE | 2017-11-18 11:41 | EDPHY ---
HPI/HX/ROS/PE/MDM Narrative: CHIEF COMPLAINT: Seizure, combative on scene HPI: The patient is a 37 y/o male with a known seizure disorder arriving via EMS for the second time this morning after another witnessed seizure. During his prior visit this morning he refused all treatments including a dose of Keppra and was discharged at his insistence. Later this morning while at a clinic shortly after getting a Toradol injection for chronic neck pain he had another witnessed tonic-clonic seizure per EMS. He was apparently combative on scene and required 4-pt restraints for transport here. His apparently told EMS that she does not want him to be released from the ED to their home until he has been treated for his seizures. Upon arrival, he is adamantly refusing all vitals and treatments, but is willing to take a dose of Keppra. He denies any complaints. REVIEW OF SYSTEMS: Aside from elements discussed in the HPI, a comprehensive 10-point review of systems was reviewed and is negative. PMH: Seizure disorder - Keppra SOCIAL HISTORY: . Employed. Lives in [place]. PHYSICAL EXAM: General:Patient is alert, in no acute distress. Head: Scalp abrasion ENT:Eyes are normal to inspection. ENT inspection normal. Neck: Normal inspection. Full range of motion. Respiratory:No respiratory distress. Breath sounds normal bilaterally. Cardiovascular: Regular rate and rhythm. Strong peripheral pulses. Normal cap refill. Abdomen:The abdomen is nontender to palpation. There are no peritoneal signs. Back: Normal to inspection. No tenderness to palpation. Skin: Normal color. No rash. Warm and dry. Extremities: Normal appearance. Full range of motion. Neuro: Oriented x3. Normal motor function. Normal sensory function. ED Course: This is a 37 y/o male with a known seizure disorder who presents for the 2nd time this morning after a witnessed seizure. Per EMS he was combative on scene and required restraints for transport. During his earlier visit today he refused any interventions or treatments and upon arrival is again refusing any treatments other than taking a dose of Keppra. He has a scalp abrasion on exam and no focal neuro deficits. The renal case manager will attempt to get more information from the patient's . The patient has been offered 1000mg PO Tylenol, 500mg PO Keppra, and 1mg PO Ativan. I spoke with the patient's . She will talk with the patient and encourage him to stay here for evaluation. Patient has agreed to medication, IV, labs, and head and neck CT imaging. Head and neck CTs: negative for acute process. Reassessed patient and discussed findings. He is feeling improved and is cooperative and polite with staff. He feels ready for discharge home and will be given standard seizure care and follow up instructions. Standard precautions given. He is comfortable with this plan. - Data Points Imaging Results: Imaging Impressions Cervical Spine CT 11/18/17 12:09 Impression: 1. No acute posttraumatic abnormality identified. If there is persistent pain or neurologic deficit, consider MRI and/or flexion and extension views if clinically indicated. 2. Polypoid structure along the right margin of the trachea measuring up to 9 mm which could be related to polyp or artifact from secretions. Direct visualization is recommended. 3. Congenital spinal canal narrowing exacerbated by degenerative change, causing moderate spinal narrowing at C4-C5 and C5-C6. 4. Additional findings as above. Findings discussed with Dr. Guillermo Salinas November 18, [address] 11/18/17 12:09 Impression: 1. No acute intracranial findings. If symptoms persist and clinical suspicion warrants, consider MRI. 2. Stable indeterminate likely benign sclerotic osseous foci. If the patient has a history of malignancy, consider bone scan. Findings discussed with Guillermo Salinas MD 11/18/2017 at 12:56. Imaging: Discussed imaging studies w/ building construction engineer Radiologist, I viewed and interpreted images myself Laboratory Results: Laboratory Results 11/18/17 12:15 11/18/17 12:15 11/18/17 11/18/17 12:15 12:15 WBC 10.80 10^3/uL H 10^3/uL (3.80-9.50) RBC 4.93 10^6/uL 10^6/uL (4.40-6.38) Hgb 13.0 g/dL L g/dL (13.7-17.5) Hct 39.6 % L % (40.0-51.0) MCV 80.3 fL L fL (81.5-99.8) MCH 26.4 pg L pg (27.9-34.1) MCHC 32.8 g/dL g/dL (32.4-36.7) RDW 14.6 % % (11.5-15.2) Plt Count 214 10^3/uL 10^3/uL (150-400) MPV 10.6 fL fL (8.7-11.7) Neut % (Auto) 75.7 % H % (39.3-74.2) Lymph % (Auto) 12.6 % L % (15.0-45.0) [place] % (Auto) 8.6 % % (4.5-13.0) Eos % (Auto) 0.8 % % (0.6-7.6) Baso % (Auto) 0.4 % % (0.3-1.7) Nucleat RBC Rel Count 0.0 % % (0.0-0.2) Absolute Neuts (auto) 8.17 10^3/uL H 10^3/uL (1.70-6.50) Absolute Lymphs (auto) 1.36 10^3/uL 10^3/uL (1.00-3.00) Absolute Monos (auto) 0.93 10^3/uL H 10^3/uL (0.30-0.80) Absolute Eos (auto) 0.09 10^3/uL 10^3/uL (0.03-0.40) Absolute Basos (auto) 0.04 10^3/uL 10^3/uL (0.02-0.10) Absolute Nucleated RBC 0.00 10^3/uL 10^3/uL (0-0.01) Immature Gran % 1.9 % H % (0.0-1.1) Immature Gran # 0.21 10^3/uL H 10^3/uL (0.00-0.10) Sodium 137 mEq/L mEq/L (135-145) Potassium 3.7 mEq/L mEq/L (3.3-5.0) Chloride 107 mEq/L mEq/L (97-110) Carbon Dioxide 21 mEq/l L mEq/l (22-31) Anion Gap 9 mEq/L mEq/L (8-16) BUN 25 mg/dL H mg/dL (7-23) Creatinine 1.2 mg/dL mg/dL (0.7-1.3) Estimated GFR > 60 Glucose 109 mg/dL H mg/dL (70-100) Calcium 8.7 mg/dL mg/dL (8.5-10.4) Medications Given: Discontinued Medications Acetaminophen (Tylenol) 1,000 mg PO EDNOW ONE Stop: 11/18/17 11:49 Last Admin: 11/18/17 11:49 Dose: 1,000 mg Levetiracetam (Keppra) 500 mg PO EDNOW ONE Stop: 11/18/17 11:46 Last Admin: 11/18/17 11:46 Dose: 500 mg Lorazepam (Ativan) 1 mg PO EDNOW ONE Stop: 11/18/17 11:42 Last Admin: 11/18/17 11:46 Dose: 1 mg General Time Seen by Provider: 11/18/17 11:38 Initial Vital Signs: Initial Vital Signs Temperature (C) 37.0 C 11/18/17 12:18 Heart Rate 94 11/18/17 12:18 Respiratory Rate 16 11/18/17 12:18 Blood Pressure 107/69 11/18/17 12:18 O2 Sat (%) 95 11/18/17 12:18 O2 Delivery Mode Room Air Allergies/Adverse Reactions: No Known Allergies Allergy (Verified 07/18/17 14:38) Home Medications: Medication Instructions Recorded Prozac 20 MG (*) 07/16/17 Seroquel 07/16/17 Keppra 09/07/17 Meloxicam 09/07/17 Departure - Departure Disposition: Home, Routine, Self-Care Clinical Impression: Seizure disorder, Recurrent seizures Instructions: Recurrent Seizures in Adults (ED) Additional Instructions: 1. Take Keppra as directed. Be careful to not miss doses. Set reminders on your phone if helpful. 2. Follow up with neurologist in the next 2-3 days for evaluation of your breakthrough seizures. 3. Do not drive or do any other activity that could put you or others at risk in event of a recurrent seizure until cleared to do so by neurologist. 4. Return for any worsening of condition. There was an incidental finding on your CT of a polyp near your trachea that requires follow up with an ENT in the next month. Referrals: Gurvinder Brown MD [Medical Doctor] - As per Instructions Duy Rosen MD [Medical Doctor] - As per Instructions Report Scribed for: Guillermo Salinas Report Scribed by: Annabelle Granados Date of Report: 11/18/17 Time of Report: 11:40 Physician Review and Approval Statement: Portions of this note were transcribed by an ED scribe. I personally performed the history, physical exam, and medical decision making; and confirm the accuracy of the information in the transcribed note.
[2017-11-18] MEDS ORDERED: LORazepam 1 MG TAB ONE (11:45)
[2017-11-18] MEDS ORDERED: ACETAMINOPHEN 500 MG TAB ONE (11:45)
[2017-11-18] MEDS ORDERED: levETIRAcetam 500 MG TAB PO ONE (11:45)
[2017-11-18] MEDS ORDERED: levETIRAcetam 500 MG TAB ONE (11:45)
[2017-11-18] MEDS ORDERED: ACETAMINOPHEN 500 MG TAB PO ONE (11:48)
[2017-11-18 12:19] VITALS: BP 107/69
[2017-11-18 12:30] LABS: PLATELET COUNT 214 10^3/uL (150-400)
== END 2017-11-18 13:19 | disposition home or self-care (01) ==
LOC: EDBD → EDUNIT#
DX: G40.909 Epilepsy, unspecified, not intractable, without status epilepticus (principal)

== ENCOUNTER 2018-03-06 09:46 | Observation (INO) | payer MEDICAID ==
[2018-03-06] MEDS ORDERED: LR 1,000 ML IV ONE (10:05)
[2018-03-06] MEDS ORDERED: BACITRACIN ZINC 14.2 GM OINTTUBE TP ONE (10:08)
[2018-03-06] MEDS ORDERED: LIDO/EPI 2%** Not for Epidural 20 ML MDV ONE (10:08)
[2018-03-06] MEDS ORDERED: EPINEPHrine 30 MG/30 ML MDV (0.1 MG/0.1 ML) ONE (10:09)
[2018-03-06] MEDS ORDERED: METHYLENE BLUE 0.5% 50 MG/10 ML AMP ONE (10:09)
[2018-03-06] MEDS ORDERED: ceFAZolin 2 GM/DEXTROSE 100 ML IV ONE (10:17)
[2018-03-06] MEDS ORDERED: LIDOCAINE 1% 2 ML INJ ONE (10:47)
--- NOTE | 2018-03-06 10:50 | PDHPUP ---
History & Physical Update H&P update statement: This history and physical update is based on an assessment of the patient which was completed after admission or registration (within 24 hours), but prior to the surgery/procedure. H&P update: H&P reviewed & patient examined, no change in patient's condition since H&P completed (pt without changes, off afrin)
[2018-03-06] MEDS ORDERED: LIDOCAINE 1% 2 ML INJ ID PRN (11:16)
[2018-03-06] MEDS ORDERED: MIDAZOLAM 2 MG/2 ML VIAL IVP ONE (12:37)
--- NOTE | 2018-03-06 12:37 | PDANEPAE ---
ANE History of Present Illness 37 y/o male, dailly smoker, seizure disorder, depression, ptsd, here for bilateral septoplasty. ANE Past Medical History - Cardiovascular History Hx Hypertension: No Hx Arrhythmias: No Hx Chest Pain: No Hx Coronary Artery / Peripheral Vascular Disease: No Hx CHF / Valvular Disease: No Hx Palpitations: No - Pulmonary History Hx COPD: No Hx Asthma/Reactive Airway Disease: No Hx Recent Upper Respiratory Infection: No Hx Oxygen in Use at Home: No Hx Sleep Apnea: No Sleep Apnea Screening Result - Last Documented: Negative Pulmonary History Comment: hx spontaeous collapsed lung, in early - Neurologic History Hx Cerebrovascular Accident: No Hx Seizures: Yes Hx Dementia: No Neurologic History Comment: epilepsy - last seizure in December 24, 2017 - Endocrine History Hx Diabetes: No - Renal History Hx Renal Disorders: No - Liver History Hx Hepatic Disorders: No - Neurological & Psychiatric Hx Hx Neurological and Psychiatric Disorders: Yes Neurological / Psychiatric History Comment: depression, PTSD - Cancer History Hx Cancer: No - Congenital Disorder History Hx Congenital Disorders: No - GI History Hx Gastrointestinal Disorders: Yes Gastrointestinal History Comment: occasional acid reflux - Other Health History Other Health History: deviated septum. fractured thoracic vertebrae - Chronic Pain History Chronic Pain: Yes (back pain) - Surgical History Prior Surgeries: none ANE Review of Systems Review of Systems: - Exercise capacity Exercise capacity: >=4 METS METS (RN): 4 METS ANE Patient History - Allergies Allergies/Adverse Reactions: No Known Allergies Allergy (Verified 07/18/17 14:38) - Home Medications Home medications: home medication list seen and reviewed Home Medications: Prozac 20 MG (*) DAILY 07/16/17 [Last Taken 03/06/18 08:00] Seroquel HS 07/16/17 [Last Taken 03/05/18] Keppra BID 09/07/17 [Last Taken 03/06/18 08:00] Meloxicam DAILY 09/07/17 [Last Taken 03/06/18 08:00] Calcium DAILY 02/23/18 [Last Taken 03/05/18] Excedrin Tablet (*) PRN 02/23/18 [Last Taken 03/05/18] Tizanidine HCl TID 03/06/18 [Last Taken 03/05/18] Zonisamide [Zonegran 100MG (*)] 400 mg HS 03/06/18 [Last Taken 03/05/18] - NPO status NPO Status: no food or drink >8 hours NPO Since - Liquids (Date): 03/06/18 NPO Since - Liquids (Time): 09:30 NPO Since - Solids (Date): 03/06/18 NPO Since - Solids (Time): 00:00 - Smoking Hx Smoking Status: Current every day smoker - Family Anes Hx Family Hx Anesthesia Complications: none ANE Labs/Vital Signs - Vital Signs Blood Pressure: 109/65 Heart Rate: 68 Respiratory Rate: 16 O2 Sat (%): 97 Height: 185.42 cm Weight: 86.183 kg ANE Physical Exam - Airway Mallampati Score: Class 2 Mouth exam: normal dental/mouth exam - Pulmonary Pulmonary: no respiratory distress, clear to auscultation - Cardiovascular Cardiovascular: regular rate and rhythym - ASA Status ASA Status: III
[2018-03-06] MEDS ORDERED: fentaNYL 100 MCG/2 ML INJ ONE (12:42)
[2018-03-06] MEDS ORDERED: PROPOFOL 200 MG/20 ML VIAL ONE (12:43)
[2018-03-06] MEDS ORDERED: PROPOFOL/EMULSION 500 MG/50 ML BOTTLE IV ONE (12:44)
[2018-03-06] MEDS ORDERED: MIDAZOLAM 2 MG/2 ML VIAL ONE ×2 (12:51→14:40)
[2018-03-06] MEDS ORDERED: ROCURONIUM 100 MG/10 ML VIAL ONE ×2 (12:55→13:20)
[2018-03-06] MEDS ORDERED: DEXAMETHASONE 4 MG/ML VIAL ONE ×3 (13:20)
[2018-03-06] MEDS ORDERED: PHENYLEPHRINE HCL 100 MCG/ML SYR ONE (13:20)
[2018-03-06] MEDS ORDERED: ePHEDrine SULFATE 25 MG/5 ML SYR ONE (13:46)
[2018-03-06] MEDS ORDERED: ONDANSETRON 4 MG/2 ML VIAL ONE (14:20)
[2018-03-06] MEDS ORDERED: GLYCOPYRROLATE 0.2 MG/1 ML VIAL ONE ×2 (14:22)
[2018-03-06] MEDS ORDERED: NEOSTIGMINE METHYLSULFATE 5 MG/5 ML SYR ONE (14:22)
[2018-03-06] MEDS ORDERED: OXYMETAZOLINE 30 ML NASAL SPRAY EACHNARE PRN (14:41)
[2018-03-06] MEDS ORDERED: ACETAMINOPHEN 325 MG TAB PO PRN (14:41)
[2018-03-06] MEDS ORDERED: ONDANSETRON 4 MG/2 ML VIAL IVP PRN (14:41)
[2018-03-06] MEDS ORDERED: SODIUM CL NASAL 45 ML BTL EACHNARE PRN (14:43)
[2018-03-06] MEDS ORDERED: D5W 1/2 NS W/ 20 KCl/L 1,000 ML IV SCH (14:45)
[2018-03-06] MEDS ORDERED: fentaNYL 100 MCG/2 ML INJ IVP PRN (15:01)
[2018-03-06] MEDS ORDERED: NALOXONE HCL 0.4 MG/ML INJ IVP PRN (15:01)
[2018-03-06] MEDS ORDERED: PROMETHAZINE HCL 25 MG/ML INJ IVP PRN (15:01)
[2018-03-06] MEDS ORDERED: METOCLOPRAMIDE 10 MG/2 ML VIAL IVP PRN (15:01)
[2018-03-06] MEDS ORDERED: LR 500 ML IV PRN (15:01)
[2018-03-06] MEDS: OXYCODONE/APAP 5/325 TAB PO PRN ×2 (18:06→22:26)
[2018-03-06] MEDS: CEPHALEXIN 500 MG CAP PO SCH ×2 (18:26→22:25)
--- NOTE | 2018-03-06 20:42 | POSTOPPROG ---
Post Op Note Date of Operation: 03/06/18 Surgeon: Angela Rivera Anesthesia: GET(General Endotracheal) Pre-op Diagnosis: nasal obstruction Post-op Diagnosis: same Procedure: septoplasty, SMR turbs Findings: DNS L, ITH B Inf/Abcess present in the surg proc area at time of surgery?: No EBL: Minimal Complications: none apparent
[2018-03-06] MEDS ORDERED: QUEtiapine FUMARATE 300 MG TAB PO SCH ×2 (21:00)
[2018-03-06] MEDS ORDERED: ZONISAMIDE 100 MG CAP PO SCH (21:00)
[2018-03-06] MEDS: CALCIUM CARBONATE 500 MG TAB PO SCH (22:25)
[2018-03-06] MEDS: levETIRAcetam 500 MG TAB PO SCH (22:25)
[2018-03-07] MEDS: OXYCODONE/APAP 5/325 TAB PO PRN (03:19)
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
[2018-03-07] MEDS ORDERED: FLUoxetine 20 MG CAP PO SCH (09:00)
[2018-03-07] MEDS: CALCIUM CARBONATE 500 MG TAB PO SCH (09:50)
[2018-03-07] MEDS: levETIRAcetam 500 MG TAB PO SCH (09:50)
[2018-03-07] MEDS: CEPHALEXIN 500 MG CAP PO SCH ×2 (09:51→13:33)
[2018-03-07 11:08] VITALS: BP 110/73
[2018-03-07] MEDS ORDERED: PNEUMOCOCCAL 0.5ML VACCINE VIAL IM ONE (11:55)
--- NOTE | 2018-03-07 12:36 | ASMTCMCOM ---
CM Note CM Note Notes: Pt is a 37 y/o man admitted for a deviated nasal septum. Pt had surgery w/ ENT. Pt is being discharged today. Pt reports that he does not have a a ride home or any money. Pt reports that his cannot pick him up because she has a DVT. CM provided pt w/ a taxi voucher by the request of Dr. Rivera. No other needs at this time. CM available for changes. Plan: Independent Date Signed: 03/07/2018 12:35 PM Electronically Signed By:KELLI Pendleton
--- NOTE | 2018-03-07 13:11 | SOAPPROG ---
SOAP Progress Note Assessment/Plan: Assessment: D/c home today. Rx as prescribed. Call with any questions Plan: 03/07/18 13:10 Subjective: c/o congestion and d/c. Had difficulty voiding last night, I&O cath x 2. Has urinated on own this am without difficulty Objective: AFVSS RA congested no active bleeding splints in place Vital Signs Temp Pulse Resp BP Pulse Ox 36.2 C 71 14 110/73 92 03/07/18 11:05 03/07/18 11:05 03/07/18 11:05 03/07/18 11:05 03/07/18 11:05 03/06/18 03/07/18 03/08/18 05:59 05:59 05:59 Intake Total 1695 500 Output Total 910 1050 Balance 785 -550 ICD10 Worksheet Patient Problems: Problems Problem Status Onset Nasal obstruction Acute - ICD10 Problem Qualifiers (1) Nasal obstruction
--- NOTE | 2018-03-08 08:53 | POSTANESTH ---
Post Anesthetic Evaluation Respiratory Status: Normal, Stable Level of Consciousness/Mental Status: Can Participate in Eval Pain Control: Adequate, Prn Tx Ordered Nausea/Vomiting Control: Adequate, Prn Tx Ordered Complications Possibly Related to Anesthesia: None Noted (This is a late entry for 03/06/18. I was involved with the patient's recovery and assessed him appropriately on that date.)
--- NOTE | 2018-03-08 18:40 | GOP ---
DATE OF OPERATION: 03/06/2018 SURGEON: Angela Rivera MD ANESTHESIA: General. PREOPERATIVE DIAGNOSIS: 1. Nasal obstruction. 2. Deviated nasal septum. 3. Inferior turbinate hypertrophy bilaterally. POSTOPERATIVE DIAGNOSIS: 1. Nasal obstruction. 2. Deviated nasal septum. 3. Inferior turbinate hypertrophy bilaterally. PROCEDURE PERFORMED: 1. Endoscopically assisted septoplasty. 2. Submucous resection of inferior turbinates bilaterally. FINDINGS: Patient was found to have a significant deviation to the left with a large septal spur on this side. He is also noted to have enlarged turbinates bilaterally. ESTIMATED BLOOD LOSS: Minimal. COMPLICATIONS: None. PREOPERATIVE NOTE: Tino is a pleasant 37-year-old man who has a history of nasal obstruction, worse on the left than the right. He has tried nasal sprays in the past without significant benefit. He was found to have the above-noted anatomical abnormalities, and felt that he would benefit from the above procedure. DESCRIPTION OF PROCEDURE: The patient was first seen in the preoperative area where informed consent was obtained. He was then brought back to the operating room where Anesthesia sedated and intubated him. The bed was turned 90 degrees , and he was prepped and draped in a normal fashion. [place] time-out protocol was performed. Once I had confirmed the patient and the procedure, 2% lidocaine with 1:100,000 epinephrine was injected into the septum on both sides , as well as the head of the inferior turbinates on both sides. Once this had sufficient time to act, a left-sided hemitransfixion incision was made down to the cartilage and then a mucoperichondrial flap was elevated on the left, back to the bony cartilaginous junction. This junction was dislocated inferiorly to superiorly, but taking care to stay at least a centimeter below the dorsal aspect of the cartilage to leave a strut. At this point, a D-knife was used to make an incision from posterior to anterior and superior to inferior, creating a square piece of cartilage. The caudal was used to elevate the mucoperichondrial flap off the opposite side, and once the cartilage was completely isolated and released, this was removed. Then a combination of hand instruments were used to remove the spur as well. The 0- degree scope throughout the procedure was placed through the hemitransfixion incision to help with access to the more posterior aspect of the septum, and for better visualization of certain points. Once the offending cartilage and bone was removed, all instruments were removed and he was noted on the scope exam to have significant more patency on both sides. So, at this point, a 5-0 plain gut on a Darrius needle was used to place quilting sutures through-and- through the septum, and then a 4-0 chromic was used to place interrupted sutures to the hemitransfixion incision. At this point, we turned our attention to the inferior turbinates. A 2 mm debrider blade was used to make a small stab incision in the head of the inferior turbinate on the left. This was then used under direct visualization using the 0-degree scope to perform a submucous resection along the length of the turbinate, and then the instrument was removed. I did the exact same thing on the right side, then removed the blade. I then used the 0-degree scope to evaluate the posterior aspect of the turbinates. He did have some bulbosity in this area, and so a suction cautery was used under direct visualization to just gently cauterize the very back part of the turbinate on both sides, thereby shrinking this tissue down and decreasing the obstruction more posteriorly. Once this was done, all the instruments were removed. His nose was irrigated out copiously with normal saline and suctioned clear. A Gonzales splint that had been cut to size was placed on either side of the septum, and then a 3-0 Prolene was used to suture these to the caudal portion of the septum with a [id number] stitch. All instrument and pledget counts were correct at the end the procedure. The patient was turned back over to Anesthesia, where he was awoken and extubated and taken to the PACU in stable condition. There were no complications, and he tolerated the procedure well. /[id number]/MODL MTDD
== END 2018-03-07 13:37 | disposition home or self-care (01) ==
LOC: FSGY 09:46 → F3E 14:50
PROVIDERS: ADMIT Otolaryngology; ATTEND Otolaryngology
DX: J34.89 Other specified disorders of nose and nasal sinuses (principal); J34.2 Deviated nasal septum; J34.3 Hypertrophy of nasal turbinates; J31.0 Chronic rhinitis; F32.9 Major depressive disorder, single episode, unspecified; G40.909 Epilepsy, unspecified, not intractable, without status epilepticus; F43.10 Post-traumatic stress disorder, unspecified; F17.200 Nicotine dependence, unspecified, uncomplicated; Z23 Encounter for immunization
CPT/HCPCS: 30140; 30520; 90471; G0378; G0008; G0009; J0171; J0690; J1100; J2250; J2370; J2405; J2704; J2710; J3010; Q9968

== ENCOUNTER 2018-03-08 17:49 | Emergency (ER) | payer MEDICAID ==
--- NOTE | 2018-03-08 17:53 | EDPHY ---
H & P Time Seen by Provider: 03/08/18 17:51 HPI/ROS: CHIEF COMPLAINT: Right lower quadrant abdominal pain HISTORY OF PRESENT ILLNESS: The patient is a 37-year-old man with history of seizure disorder, depression, PTSD who comes to the emergency department via EMS complaining of right lower abdominal "tenderness". He states that it is not painful but is tender. He has felt nauseous but has not vomited. No diarrhea. No fever. No urinary symptoms. No back pain. He states that the symptoms began this morning and have not resolved. No history of abdominal surgery. He states that he did have nasal septum surgery yesterday. Severity: Moderate Modifying factors: None REVIEW OF SYSTEMS: Constitutional: denies: chills, fever, recent illness, recent injury EENTM: denies: blurred vision, double vision, nose congestion Respiratory: denies: cough, shortness of breath Cardiac: denies: chest pain, irregular heart rate, lightheadedness, palpitations Gastrointestinal/Abdominal: See HPI denies: diarrhea, vomiting, blood streaked stools Genitourinary: denies: dysuria, frequency, hematuria, pain Musculoskeletal: denies: joint pain, muscle pain Skin: denies: lesions, rash, jaundice, bruising Neurological: denies: headache, numbness, paresthesia, tingling, dizziness, weakness Hematologic/Lymphatic: denies: blood clots, easy bleeding, easy bruising Immunologic/allergic: denies: HIV/AIDS, transplant 10 systems reviewed and negative except as noted EXAM: GENERAL: Nauseous, no acute distress. HEAD: Atraumatic, normocephalic. EYES: Pupils equal round and reactive to light, extraocular movements intact, sclera anicteric, conjunctiva are normal. ENT: TMs normal, nares patent, oropharynx clear without exudates. Moist mucous membranes. NECK: Normal range of motion, supple without lymphadenopathy or JVD. LUNGS: Breath sounds clear to auscultation bilaterally and equal. No wheezes rales or rhonchi. HEART: Regular rate and rhythm without murmurs, rubs or gallops. ABDOMEN: Slightly distended, nontender, normoactive bowel sounds. No guarding , no rebound. No masses appreciated. BACK: No CVA tenderness, no spinal tenderness, step-offs or deformities EXTREMITIES: Normal range of motion, no pitting or edema. No clubbing or cyanosis. NEUROLOGICAL: Cranial nerves II through XII grossly intact. Normal speech, normal gait. 5/5 strength, normal movement in all extremities, normal sensation , normal reflexes PSYCH: Normal mood, normal affect. SKIN: Warm, dry, normal turgor, no visible rashes or lesions. Source: Patient, EMS Exam Limitations: No limitations - Personal History Tetanus Vaccine Date: < 10 years - Medical/Surgical History Hx Asthma: No Hx Chronic Respiratory Disease: No Hx Diabetes: No Hx Cardiac Disease: No Hx Renal Disease: No Hx Cirrhosis: No Hx Alcoholism: Yes Hx HIV/AIDS: No Hx Splenectomy or Spleen Trauma: No Other PMH: Left spontaneous pneumothorax,. depression, PTSD, seizures, FX SPINE , osteoporosis - Family History Significant Family History: No pertinent family hx - Social History Smoking Status: Current every day smoker Alcohol Use: Sober Drug Use: None Constitutional: Initial Vital Signs Temperature (C) 36.7 C 03/08/18 17:49 Heart Rate 70 03/08/18 17:49 Respiratory Rate 18 03/08/18 17:49 Blood Pressure 141/93 H 03/08/18 17:49 O2 Sat (%) 97 03/08/18 17:49 O2 Delivery Mode Room Air Allergies/Adverse Reactions: No Known Allergies Allergy (Verified 03/08/18 17:52) Home Medications: Medication Instructions Recorded QUEtiapine FUMARATE [Seroquel 600 mg PO HS 07/16/17 300mg (*)] levETIRAcetam [Keppra 500 mg (*)] 500 mg PO BID 09/07/17 Acetaminophen/ASA/Caffeine 1 tab PO BID PRN 02/23/18 [Excedrin Tablet (*)] Calcium Carbonate [[place] 1,000 mg PO BID 02/23/18 Calcium 500 mg (*)] FLUoxetine HCL [Fluoxetine HCl] 80 mg PO DAILY 03/06/18 Tizanidine HCl 4 mg PO TID 03/06/18 Zonisamide [Zonegran 100MG (*)] 400 mg PO HS 03/06/18 Cephalexin [Keflex (*)] 500 mg PO TID #21 cap 03/07/18 Sodium Cl Nasal [[place] (*)] 3 spray NS Q2H PRN #1 btl 03/07/18 oxyCODONE/APAP 5/325 [Percocet 1 tab PO Q6H PRN #20 tab 03/07/18 5/325 (*)] Ondansetron Odt [Zofran Odt 4 mg 4 mg PO Q4 PRN #20 tab 03/08/18 (RX)] Tamsulosin HCl [Flomax] 0.4 mg PO DAILY #10 cap 03/08/18 morphINE IR [morphINE IR 15 mg (*)] 15 mg PO Q3-4PRN PRN #10 tab 03/08/18 Medical Decision Making - Diagnostics Imaging Results: Imaging Impressions Abdomen CT 03/08/18 17:55 Impression: 1. 3 mm distal right ureteral calculus with associated with moderate hydronephrosis and delayed nephrogram. Bilateral nephrolithiasis. 2. Dilatation of the distal esophagus, achalasia versus hiatal hernia. Imaging: Discussed imaging studies w/ entertainment centre manager Radiologist ED Course/Re-evaluation: Patient's creatinine is slightly elevated. We will continue to hydrate with a 2nd L of fluids and will proceed with CT scan. 7:50 p.m. we discussed the patient's CT scan. He has not received pain medication. I will start him on lidocaine however this will take some time to get from pharmacy. I will give him Dilaudid initially. I will not give him Toradol because of his slightly elevated creatinine. He did receive contrast but recent studies have shown that this does not cause significant kidney injury. He has received fluids. He is continuing to drink. I will also give him Flomax. We discussed catching his stone and taking into the urologist for analysis and that he has several other stones in his kidney. 8:30 p.m. the patient's pain is controlled. He is eager to go home. He understands follow-up instructions and straining his urine. We discussed indications for returning. Differential Diagnosis: Partial list of the Differential diagnosis considered include but were not limited to; kidney stones, appendicitis and although unlikely based on the history and physical exam, I also considered obstruction, diverticulitis, urinary tract infection. I discussed these differential diagnoses and the plan with the patient as well as the usual and expected course. The patient understands that the diagnosis is provisional and that in medicine we are not always correct and that further workup is often warranted. Usual and customary warnings were given. All of the patient's questions were answered. The patient was instructed to return to the emergency department should the symptoms at all worsen or return, otherwise to followup with the physician as we discussed. - Data Points Laboratory Results: Laboratory Results 03/08/18 18:15 03/08/18 18:15 03/08/18 03/08/18 03/08/18 20:14 18:15 18:15 WBC 10.91 10^3/uL H 10^3/uL (3.80-9.50) RBC 4.44 10^6/uL 10^6/uL (4.40-6.38) Hgb 12.2 g/dL L g/dL (13.7-17.5) Hct 37.2 % L % (40.0-51.0) MCV 83.8 fL fL (81.5-99.8) MCH 27.5 pg L pg (27.9-34.1) MCHC 32.8 g/dL g/dL (32.4-36.7) RDW 14.7 % % (11.5-15.2) Plt Count 212 10^3/uL 10^3/uL (150-400) MPV 10.7 fL fL (8.7-11.7) Neut % (Auto) 76.3 % H % (39.3-74.2) Lymph % (Auto) 8.7 % L % (15.0-45.0) [place] % (Auto) 10.5 % % (4.5-13.0) Eos % (Auto) 3.3 % % (0.6-7.6) Baso % (Auto) 0.4 % % (0.3-1.7) Nucleat RBC Rel Count 0.0 % % (0.0-0.2) Absolute Neuts (auto) 8.32 10^3/uL H 10^3/uL (1.70-6.50) Absolute Lymphs (auto) 0.95 10^3/uL L 10^3/uL (1.00-3.00) Absolute Monos (auto) 1.15 10^3/uL H 10^3/uL (0.30-0.80) Absolute Eos (auto) 0.36 10^3/uL 10^3/uL (0.03-0.40) Absolute Basos (auto) 0.04 10^3/uL 10^3/uL (0.02-0.10) Absolute Nucleated RBC 0.00 10^3/uL 10^3/uL (0-0.01) Immature Gran % 0.8 % % (0.0-1.1) Immature Gran # 0.09 10^3/uL 10^3/uL (0.00-0.10) Sodium 139 mEq/L mEq/L (135-145) Potassium 4.1 mEq/L mEq/L (3.3-5.0) Chloride 107 mEq/L mEq/L (97-110) Carbon Dioxide 22 mEq/l mEq/l (22-31) Anion Gap 10 mEq/L mEq/L (6-14) BUN 24 mg/dL H mg/dL (7-23) Creatinine 1.7 mg/dL H mg/dL (0.7-1.3) Estimated GFR 45 Glucose 150 mg/dL H mg/dL (70-100) Calcium 9.1 mg/dL mg/dL (8.5-10.4) Total Bilirubin 0.2 mg/dL mg/dL (0.1-1.4) Conjugated Bilirubin 0.2 mg/dL mg/dL (0.0-0.5) Unconjugated Bilirubin 0.0 mg/dL mg/dL (0.0-1.1) AST 21 IU/L IU/L (17-59) ALT 29 IU/L IU/L (21-72) Alkaline Phosphatase 91 IU/L IU/L (38-126) Total Protein 6.7 g/dL g/dL (6.3-8.2) Albumin 3.9 g/dL g/dL (3.5-5.0) Lipase 49 IU/L IU/L (23-300) Urine Color PALE YELLOW Urine Appearance CLEAR Urine pH 7.0 (5.0-7.5) Ur Specific [place] 1.016 (1.002-1.030) Urine Protein NEGATIVE (NEGATIVE) Urine Ketones NEGATIVE (NEGATIVE) Urine Blood 2+ H (NEGATIVE) Urine Nitrate NEGATIVE (NEGATIVE) Urine Bilirubin NEGATIVE (NEGATIVE) Urine Urobilinogen NEGATIVE EU EU (0.2-1.0) Ur Leukocyte Esterase NEGATIVE (NEGATIVE) Urine RBC 50-182 /hpf H /hpf (0-3) Urine WBC 3-5 /hpf H /hpf (0-3) Ur Epithelial Cells TRACE /lpf /lpf (NONE-1+) Urine Mucus TRACE /lpf /lpf (NONE-1+) Urine Glucose NEGATIVE (NEGATIVE) Medications Given: Discontinued Medications Hydrocodone Bitart/Acetaminophen ([place] 5/325mg Prepack#6) 1 btl TAKEHOME EDNOW ONE Stop: 03/08/18 20:42 Last Admin: 03/08/18 20:48 Dose: 1 btl Hydromorphone HCl (Dilaudid) 0.5 mg IVP EDNOW ONE Stop: 03/08/18 19:51 Last Admin: 03/08/18 20:08 Dose: 0.5 mg Sodium Chloride (Ns) 1,000 mls @ 0 mls/hr IV EDNOW ONE; Wide Open PRN Reason: Protocol Stop: 03/08/18 17:56 Last Admin: 03/08/18 18:13 Dose: 1,000 mls Sodium Chloride (Ns) 1,000 mls @ 0 mls/hr IV EDNOW ONE; Wide Open PRN Reason: Protocol Stop: 03/08/18 19:07 Last Admin: 03/08/18 19:13 Dose: 1,000 mls Lidocaine HCl 150 mg/ Sodium (Chloride) 115 mls @ 600 mls/hr IV EDNOW ONE Stop: 03/08/18 20:02 Last Admin: 03/08/18 20:14 Dose: 115 mls Ondansetron HCl (Zofran) 4 mg IVP EDNOW ONE Stop: 03/08/18 17:56 Last Admin: 03/08/18 18:13 Dose: 4 mg Ondansetron HCl (Zofran) 4 mg IVP EDNOW ONE Stop: 03/08/18 19:19 Last Admin: 03/08/18 19:34 Dose: 4 mg Tamsulosin HCl (Flomax) 0.4 mg PO EDNOW ONE Stop: 03/08/18 19:55 Last Admin: 03/08/18 20:08 Dose: 0.4 mg Departure - Departure Disposition: Home, Routine, Self-Care Clinical Impression: Kidney stone on right side Condition: Fair Instructions: Hydrocodone/Acetaminophen (By mouth), Kidney Stones (ED) Referrals: NONE *PRIMARY CARE P,. [Primary Care Provider] - As per Instructions Sánchez Koenig MD [Medical Doctor] - 2-3 days, call for appt. Prescriptions: morphINE IR [morphINE IR 15 mg (*)] 15 mg PO Q3-4PRN PRN #10 tab PRN Reason: Pain, Severe Ondansetron Odt [Zofran Odt 4 mg (RX)] 4 mg PO Q4 PRN #20 tab PRN Reason: Nausea & Vomiting Tamsulosin HCl [Flomax] 0.4 mg PO DAILY #10 cap
[2018-03-08] MEDS ORDERED: ONDANSETRON 4 MG/2 ML VIAL IVP ONE ×2 (17:55→19:18)
[2018-03-08] MEDS ORDERED: NS 1,000 ML IV ONE ×2 (17:55→19:06)
[2018-03-08] MEDS ORDERED: ONDANSETRON 4 MG/2 ML VIAL ONE (17:56)
[2018-03-08 18:43] LABS: PLATELET COUNT 212 10^3/uL (150-400)
[2018-03-08] MEDS ORDERED: IOPAMIDOL (ISOVUE-300) 100 ML BTL ONE (18:53)
[2018-03-08] MEDS ORDERED: HYDROmorphONE/DILAUDID 2 MG/ML INJ IVP ONE (19:50)
[2018-03-08] MEDS ORDERED: LIDOCAINE 1% 150 MG in NS 100 ML IV ONE (19:51)
[2018-03-08] MEDS ORDERED: TAMSULOSIN HCL 0.4 MG CAP PO ONE (19:54)
[2018-03-08] MEDS ORDERED: HYDROCOD/APAP 5/325 PREPACK#6 BTL TAKEHOME ONE (20:41)
[2018-03-08 20:50] VITALS: BP 142/68
== END 2018-03-08 20:50 | disposition home or self-care (01) ==
LOC: EDUNIT#
DX: N13.2 Hydronephrosis with renal and ureteral calculous obstruction (principal); E86.9 Volume depletion, unspecified; K22.9 Disease of esophagus, unspecified; G40.909 Epilepsy, unspecified, not intractable, without status epilepticus; F32.9 Major depressive disorder, single episode, unspecified; F43.10 Post-traumatic stress disorder, unspecified; F17.210 Nicotine dependence, cigarettes, uncomplicated
CPT/HCPCS: 96365; J1170; J2405; Q9967

== ENCOUNTER 2018-03-11 13:32 | Emergency (ER) | payer SELFPAY ==
[2018-03-11 13:41] VITALS: BP 96/69
--- NOTE | 2018-03-11 14:39 | EDPHY ---
H & P Stated Complaint: prob post deviated septum surg on tuesday Time Seen by Provider: 03/11/18 14:38 HPI/ROS: CHIEF COMPLAINT: Insurance problem, needs to see ENT for septoplasty follow up HISTORY OF PRESENT ILLNESS: The patient is a 37 y/o male who underwent a septoplasty and turbinate reduction 5 days ago and arrives requesting post- operative reevaluation stating his post-op ENT appointment this week was cancelled due to loss of insurance coverage. His surgery was performed on with Dr. Lopez and he was scheduled for suture and splint removal on , 3 days from now. Yesterday he received a phone call from the ENT office saying his appointment was cancelled due to loss of Medicaid status. He has some pain with breathing and nose stuffiness as expected following the surgery. No fever or other infectious symptoms. REVIEW OF SYSTEMS: A ten system review of systems was performed and is negative with the exception of the items mentioned in the HPI. Past medical history: Deviated nasal septum, kidney stones Past surgical history: Septoplasty with turbinate resection Family history: Noncontributory Social history: Smoker. Has girlfriend. Lives in [place]. Not employed. General Appearance: Alert. Vital signs reviewed. Focused exam performed. ENT, Mouth: Mucous membranes are moist, no oropharyngeal erythema or edema. Nose without active bleeding, splints in place. Neck: Supple. Respiratory: No distress. Skin: Warm and dry, no rashes on exposed skin, normal color. Neurological: Alert and oriented. Moving all four extremities easily and equally. Psychiatric: Normal affect. - Personal History Current Tetanus Diphtheria and Acellular Pertussis (TDAP): Yes Tetanus Vaccine Date: < 10 years - Medical/Surgical History Hx Asthma: No Hx Chronic Respiratory Disease: No Hx Diabetes: No Hx Cardiac Disease: No Hx Renal Disease: No Hx Cirrhosis: No Hx Alcoholism: Yes Hx HIV/AIDS: No Hx Splenectomy or Spleen Trauma: No Other PMH: Left spontaneous pneumothorax,. depression, PTSD, seizures, FX SPINE , osteoporosis. surg for deviated septum - Social History Smoking Status: Current every day smoker Constitutional: Initial Vital Signs Temperature (C) 36.5 C 03/11/18 13:39 Heart Rate 94 03/11/18 13:39 Respiratory Rate 18 03/11/18 13:39 Blood Pressure 96/69 L 03/11/18 13:39 O2 Sat (%) 95 03/11/18 13:39 O2 Delivery Mode Room Air Allergies/Adverse Reactions: No Known Allergies Allergy (Verified 03/11/18 13:39) Home Medications: Medication Instructions Recorded QUEtiapine FUMARATE [Seroquel 600 mg PO HS 07/16/17 300mg (*)] levETIRAcetam [Keppra 500 mg (*)] 500 mg PO BID 09/07/17 Acetaminophen/ASA/Caffeine 1 tab PO BID PRN 02/23/18 [Excedrin Tablet (*)] Calcium Carbonate [[place] 1,000 mg PO BID 02/23/18 Calcium 500 mg (*)] FLUoxetine HCL [Fluoxetine HCl] 80 mg PO DAILY 03/06/18 Tizanidine HCl 4 mg PO TID 03/06/18 Zonisamide [Zonegran 100MG (*)] 400 mg PO HS 03/06/18 Cephalexin [Keflex (*)] 500 mg PO TID #21 cap 03/07/18 Sodium Cl Nasal [[place] (*)] 3 spray NS Q2H PRN #1 btl 03/07/18 oxyCODONE/APAP 5/325 [Percocet 1 tab PO Q6H PRN #20 tab 03/07/18 5/325 (*)] Ondansetron Odt [Zofran Odt 4 mg 4 mg PO Q4 PRN #20 tab 03/08/18 (RX)] Tamsulosin HCl [Flomax] 0.4 mg PO DAILY #10 cap 03/08/18 morphINE IR [morphINE IR 15 mg (*)] 15 mg PO Q3-4PRN PRN #10 tab 03/08/18 Medical Decision Making ED Course/Re-evaluation: 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 Consulted with Dr. Servin, ENT and Dr. Lopez's partner. He assures me they will see the patient for follow up this week regardless of his insurance status. Reassessed patient and discussed Dr. Servin's recommendation to call Tuesday morning to arrange follow up appointment. He is comfortable with plan and will be discharged with normal precautions. Nothing to suggest infection or post-op problem. Departure - Departure Disposition: Home, Routine, Self-Care Clinical Impression: Postop check Condition: Good Instructions: Septoplasty (DC) Additional Instructions: I spoke with Dr. Margarito Servin on the phone. He is Dr. Angela Rivera's partner. He assures me that the office will see you for a follow-up appointment regardless of your insurance status. He would like you to call the office on Tuesday morning and ask to speak with Jaime. Jaime is Dr. Servin's claim review medical director. She can help you sort this out and arrange a follow-up appointment for you. Referrals: Anika Wong NP [Primary Care Provider] - As per Instructions Angela Rivera MD [Medical Doctor] - As per Instructions Report Scribed for: Manisha Prakash Report Scribed by: Annabelle Granados Date of Report: 03/11/18 Time of Report: 15:38 Physician Review and Approval Statement: 03/11/18 14:38 Portions of this note were transcribed by the medical representative. I, Dr. Manisha Prakash, personally performed the history, physical exam, and medical decision- making; and confirmed the accuracy of the information in the transcribed note.
== END 2018-03-11 15:38 | disposition home or self-care (01) ==
DX: Z09 Encounter for follow-up examination after completed treatment for conditions other than malignant neoplasm (principal)

== ENCOUNTER 2018-04-09 09:06 | Emergency (ER) | payer SELFPAY ==
--- NOTE | 2018-04-09 09:47 | EDPHY ---
H & P Stated Complaint: back pain Time Seen by Provider: 04/09/18 09:24 HPI/ROS: Chief complaint: Back pain History of present illness: This is a 37-year-old male who presents to the emergency department for evaluation of back pain. Patient reports he has had back pain since last spring. He has a history of seizures. He reports the seizures have caused multiple fractures in his spine. He was in a back brace for a prolonged period of time. However his back surgeon recently took him out of the back brace as hefelt it was no longer helpful. The patient states he has continued pain. He was going to follow up with his back surgeon in [place] but his Medicaid has run out. He cannot remember the name of his back surgeon. No new trauma. Review of systems: A 10 point review of systems was obtained and other than described above was negative - Personal History Current Tetanus/Diphtheria Vaccine: Yes Current Tetanus Diphtheria and Acellular Pertussis (TDAP): Yes Tetanus Vaccine Date: < 10 years - Medical/Surgical History Hx Asthma: No Hx Chronic Respiratory Disease: No Hx Diabetes: No Hx Cardiac Disease: No Hx Renal Disease: No Hx Cirrhosis: No Hx Alcoholism: Yes Hx HIV/AIDS: No Hx Splenectomy or Spleen Trauma: No Other PMH: Left spontaneous pneumothorax,. depression, PTSD, seizures, FX SPINE , osteoporosis. surg for deviated septum - Social History Smoking Status: Current every day smoker - Physical Exam Exam: General Appearance: Alert, nontoxic Eyes: PERRLA Respiratory: Lungs clear to auscultation bilaterally Cardiac: Regular rate and rhythm. Neurological: Alert and oriented x4. Strength and sensation intact and symmetrical. Skin: No lesions consistent with acute trauma noted. Musculoskeletal: The head is nontender. The spine is nontender along its entire length, no crepitus, bony deformity or step-off appreciated. Chest wall intact palpation. Patient is moving extremities well. He is ambulating on his own. Constitutional: Initial Vital Signs Temperature (C) 36.5 C 04/09/18 09:12 Heart Rate 77 04/09/18 09:12 Respiratory Rate 16 04/09/18 09:12 Blood Pressure 110/72 04/09/18 09:12 O2 Sat (%) 98 04/09/18 09:12 O2 Delivery Mode Room Air Allergies/Adverse Reactions: No Known Allergies Allergy (Verified 04/09/18 09:10) Home Medications: Medication Instructions Recorded levETIRAcetam [Keppra 500 mg (*)] 500 mg PO BID 09/07/17 Tizanidine HCl 4 mg PO TID 03/06/18 Zonisamide [Zonegran 100MG (*)] 400 mg PO HS 03/06/18 Medical Decision Making - Diagnostics Imaging Results: Imaging Impressions Lumbar Spine X-Ray 04/09/18 09:29 Impression: Minimal, (less than 10%), age indeterminant L1 compression fracture. Thoracic Spine X-Ray 04/09/18 09:29 Impression: Mild age indeterminate T11 compression fracture. Imaging: Discussed imaging studies w/ call person Radiologist ED Course/Re-evaluation: Patient is discussed with my secondary supervising physician Dr. Manish Easton. Patient presents for persistent back pain. He states he has had it since seizures resulted in fractures in his spine last spring. No new trauma is reported. He has been unable to follow up with his spine doctor in [place]. He is requesting x-rays to assess the stability of his spine. He has a nonfocal neurologic exam. X-rays do reveal compression fractures that do appear to be old given no recent trauma noted. He is discharged home. Home care is discussed. He is asked to follow up with either his spine doctor or our spine doctor and he is given referral information. Strict return precautions are given. The patient voiced understanding and agreement with plan. Differential Diagnosis: Included but not limited to back sprain/strain, compression fractures, herniated intervertebral disc Departure - Departure Disposition: Home, Routine, Self-Care Clinical Impression: Back pain Qualifiers: Back pain location: low back pain Chronicity: chronic Back pain laterality: midline Sciatica presence: without sciatica Qualified Code(s): M54.5 - Low back pain; G89.29 - Other chronic pain; G89.29 - Other chronic pain Condition: Good Instructions: Back Pain (ED) Additional Instructions: Follow-up with your spine doctor for continued evaluation and care You can also follow up with our spine doctor Use ibuprofen 600 mg 3 times a day for the next 2-3 days for pain control If symptoms worsen or new symptoms develop return to the emergency room for recheck Referrals: NONE *PRIMARY CARE P,. [Primary Care Provider] - As per Instructions Adam Patel MD [Medical Doctor] - As per Instructions [facility],. [Clinic] - As per Instructions
[2018-04-09 10:56] VITALS: BP 119/76
== END 2018-04-09 10:56 | disposition home or self-care (01) ==
DX: M54.5 Low back pain (principal); G89.29 Other chronic pain

== ENCOUNTER 2018-04-25 19:50 | Inpatient (IN) | payer SELFPAY ==
--- NOTE | 2018-04-25 20:08 | EDPHY ---
H & P Time Seen by Provider: 04/25/18 20:06 HPI/ROS: CHIEF COMPLAINT: "The dark voices are getting worse" HISTORY OF PRESENT ILLNESS: 37-year-old man has a history of PTSD and depression, has been off his psychiatric medications for about 1 month. He says the"dark voices" are getting worse in their telling him to be more aggressive toward others. He said yesterday he throughout his roommate saying that if he came back he would "castrate him or burn him alive." He works at a [employer] [place], and says that yesterday a customer was taking extra time to leave the bathroom and the voices were suggesting that he take the chemical spray bottle and use it on the customer. He says he does not like the way the voices make him act and feel and he does not want to be violent towards other people. He is worried that if this continues and gets worse that he would eventually do what they are telling him. REVIEW OF SYSTEMS: Eye: no change in vision ENT: no sore throat Cardiac: no chest pain or syncope Pulmonary: no cough or SOB Abdomen: no vomiting, diarrhea, abdominal pain Musculoskeletal: Chronic back pain unchanged Skin: No laceration Neuro: no headache Constitutional: no fever : no urinary symptoms A comprehensive 10 point review of systems is otherwise negative aside from elements mentioned in the history of present illness. PAST MEDICAL HISTORY: Includes seizure disorder on Keppra, depression, PTSD, spine fracture and left pneumothorax Social history: Denies alcohol, is a tobacco smoker. General Appearance: Alert and conversant, cooperative. Eyes: No scleral icterus. ENT, Mouth: Normal mucous membranes. Respiratory: Normal respiratory effort, breath sounds equal, lungs are clear to auscultation. Cardiovascular: Regular rate and rhythm. Gastrointestinal: Abdomen is soft and non tender. Neurological: Alert, face symmetric, normal motor and sensory in extremities. Skin: No lacerations or bruising. Musculoskeletal: No peripheral edema. Psychiatric: The patient admits to auditory hallucinations but denies suicidal ideation. He says he has some thoughts of hurting others as documented in the HPI but says he would not do it because he"does not want to be in court" the and tell to manager of business operations "yes that was me." Emergency Department course/MDM: 2216: Placed on a mental health hold for danger to others with worsening thoughts of harming others. This is after further interview with the project consultant [facility] hospice team lead. 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 The patient will be transferred to [facility] for inpatient psychiatric hospital bed not available at this facility, in stable condition; accepting physician is Dr. Jauregui. EMTALA form completed. Smoking Status: Current every day smoker Constitutional: Initial Vital Signs Temperature (C) 36.7 C 04/25/18 19:50 Heart Rate 82 04/25/18 19:50 Respiratory Rate 16 04/25/18 19:50 Blood Pressure 124/60 H 04/25/18 19:50 O2 Sat (%) 100 04/25/18 19:50 O2 Delivery Mode Room Air Allergies/Adverse Reactions: No Known Allergies Allergy (Verified 04/25/18 19:54) Home Medications: Medication Instructions Recorded levETIRAcetam [Keppra 500 mg (*)] 500 mg PO BID 09/07/17 Tizanidine HCl 4 mg PO TID 03/06/18 Zonisamide [Zonegran 100MG (*)] 400 mg PO HS 03/06/18 Prozac 10 MG (*) 04/25/18 Seroquel 04/25/18 Medical Decision Making - Data Points Laboratory Results: Laboratory Results 04/25/18 21:15 04/25/18 21:15 04/25/18 04/25/18 04/25/18 21:30 21:15 21:15 WBC 7.63 10^3/uL 10^3/uL (3.80-9.50) RBC 4.58 10^6/uL 10^6/uL (4.40-6.38) Hgb 12.1 g/dL L g/dL (13.7-17.5) Hct 38.0 % L % (40.0-51.0) MCV 83.0 fL fL (81.5-99.8) MCH 26.4 pg L pg (27.9-34.1) MCHC 31.8 g/dL L g/dL (32.4-36.7) RDW 13.2 % % (11.5-15.2) Plt Count 273 10^3/uL 10^3/uL (150-400) MPV 10.6 fL fL (8.7-11.7) Neut % (Auto) 63.3 % % (39.3-74.2) Lymph % (Auto) 25.3 % % (15.0-45.0) [place] % (Auto) 8.8 % % (4.5-13.0) Eos % (Auto) 1.8 % % (0.6-7.6) Baso % (Auto) 0.5 % % (0.3-1.7) Nucleat RBC Rel Count 0.0 % % (0.0-0.2) Absolute Neuts (auto) 4.83 10^3/uL 10^3/uL (1.70-6.50) Absolute Lymphs (auto) 1.93 10^3/uL 10^3/uL (1.00-3.00) Absolute Monos (auto) 0.67 10^3/uL 10^3/uL (0.30-0.80) Absolute Eos (auto) 0.14 10^3/uL 10^3/uL (0.03-0.40) Absolute Basos (auto) 0.04 10^3/uL 10^3/uL (0.02-0.10) Absolute Nucleated RBC 0.00 10^3/uL 10^3/uL (0-0.01) Immature Gran % 0.3 % % (0.0-1.1) Immature Gran # 0.02 10^3/uL 10^3/uL (0.00-0.10) Sodium 138 mEq/L mEq/L (135-145) Potassium 4.1 mEq/L mEq/L (3.5-5.2) Chloride 108 mEq/L mEq/L (97-110) Carbon Dioxide 22 mEq/l mEq/l (22-31) Anion Gap 8 mEq/L mEq/L (6-14) BUN 22 mg/dL mg/dL (7-23) Creatinine 1.3 mg/dL mg/dL (0.7-1.3) Estimated GFR > 60 Glucose 100 mg/dL mg/dL (70-100) Calcium 9.0 mg/dL mg/dL (8.5-10.4) Urine Opiates Screen NEGATIVE (NEGATIVE) Urine Barbiturates NEGATIVE (NEGATIVE) Ur Phencyclidine Scrn NEGATIVE (NEGATIVE) Ur Amphetamine Screen NEGATIVE (NEGATIVE) U Benzodiazepines Scrn NEGATIVE (NEGATIVE) Urine Cocaine Screen NEGATIVE (NEGATIVE) U Marijuana (THC) Screen NEGATIVE (NEGATIVE) Ethyl Alcohol < 10 mg/dL mg/dL (0-10) Departure - Departure Disposition: [facility] IP Clinical Impression: PTSD (post-traumatic stress disorder), Acute psychosis Condition: Good Instructions: Post Traumatic Stress Disorder (ED) Referrals: NONE *PRIMARY CARE P,. [Primary Care Provider] - As per Instructions
[2018-04-25 21:27] LABS: PLATELET COUNT 273 10^3/uL (150-400)
--- NOTE | 2018-04-25 22:00 | ASMTTLCEVL ---
[facility] Evaluation - Basic Information Evaluation Start Date and 04/25/2018 02:30 AM Time Hospital Status Answers: Voluntary Patient statement Notes: "I'm in a dark place. I'm off my meds and hearing voices to do things. I have PTSD and severe depression and want to hurt people at work and my roommate. I came in hear because I don't want things to get worse. I'm not sleeping or eating." Narrative Notes: PT is a 37 year old employed, male. PT said he has been off of his medication for about a month because he lost his Medicaid because he is making to much at his work at [employer]. PT reported that he wanted to spray windex in the eyes of a co-worker because he was annoying him. PT reported that when he is on his meds he doesn't have these dark thoughts. Diagnosis History Notes: PTSD, Depression Prior suicide attempts Notes: PT denies Prior hospitalizations Notes: PT reported he has been hospitalized but cannot remember when. Treatment Responses Notes: PT reports that when he is on hi meds he does well. History of violence Notes: Denies but said that he can get into verbal altercations with people. Therapist: [facility] Psychiatrist: Dr. Espitia Medications (name, dosage, route, freq uency) Notes: Prozac Seroquel Allergies/Reaction Notes: None except seasonal allergies. Sleep Notes: Not sleeping but not able to say how much sleep. Appetite Notes: Loss of appetite. Medical/Surgical history Notes: Had sinus surgery this Fall. Substance use history (frequency, intensity, his tory, duration) Notes: Currently uses marijuana but denies current use of any other substances. Past use of cocaine and methamphetamine Family composition Notes: , ne child from another partner daughter who is 12 years old and lives in [place]. PT reports that his family lives in [place] and said he doesn't have contact with them right now. Need for family Answers: Yes participation in patient's care Family psychiatric/substance abuse history Notes: PT said he thinks there is both mental health and substance abuse issues but couldnt give any details. Developmental history Notes: PT said he couldn't remember much. Abuse concerns Answers: Past Marital status/children Notes: lives with him. His daughter lives in [place], he said he has contact with her. Living situation Notes: Lives wiht his . Sexual history/orientation Notes: Heterosexual Peer support/family strengths Notes: Said he doesn't have any friends, but is close to his . Education level/history Notes: Graduated from high school and has taken some college courses. 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 Notes: Denied Legal Notes: Denied Adventist/Spiritual Notes: Spiritism Leisure Notes: PT said he is a history buff. Collateral Notes: Patient's strengths Answers: Funny/Using Humor (Please select at least TWO strengths): Honest Intelligent Motivated for Treatment [facility] Evaluation - Mental Status Exam Appearance: Answers: Appropriate Clean Eye Contact: Answers: Good/Direct Mood: Answers: Depressed Irritable Affect: Answers: Agitated Anxious Apprehensive Distracted Irritable Behavior: Answers: Cooperative Anxious Speech: Answers: Illogical Loose Associations Thought Process: Answers: Disorganized Paranoid Insight: Answers: Poor Judgement: Answers: Poor Manic Signs/Symptoms Answers: Impulsivity Irritability Mood Swings Hallucinations: Answers: Auditory Pt reported to have Answers: No suicidal/self-injuring ideation/behavior? Pt reported to be making Answers: No suicidal/self-injuring threats? Pt reported to have Answers: Yes aggression/assault ideation/behavior? Pt reported to be making Answers: No aggression/assault threats? Pt exhibits inability to Answers: Yes care for self/grave disability? Ideation/behavior is Answers: No chronic? Patient has a specific Answers: No plan? Pt has access to means to Answers: No execute the plan? Ideation has Answers: No delusional/hallucinatory content? History of Answers: No suicidal/self-injuring ideation, behavior, or threats? History of Answers: No aggressive/assaultive ideation, behavior, or threats? History of serious Answers: No physical harm to self/others while in treatment setting? [facility] Evaluation - Suicide/Homicide Risk Suicide Risk Factors: Answers: < 20 or > 40 Years of Age Agitation History of Abuse Lack of Social Support Major Depression Psychotic Disorder Homicide/violence risk Answers: Command Hallucinations factors: Current Suicidal Answers: No Ideation? Current Suicidal Ideation Answers: No in the Past 48 Hours? Current Suicidal Ideation Answers: No in the Past Month? Current Suicidal Answers: No Ideation, Worst Ever? Suicide Internal Answers: None Protective Factors: Ranking of patient's Answers: Low suicidal risk: Ranking of patient's Answers: Low homicidal risk: [facility] Evaluation - Wrap-up BDI Total Score: unable to fill out BDI Question #2 Score: unable to fill out BDI Question #9 Score: unable fill out BSS Total Score: unable fill out AXIS I Diagnosis (include DSM-V and ICD-10 codes), must also be entered in [place], which is the source of truth. Notes: Major Depressive Disorder, recurrent, with psychotic features 296.34 (F33.3) Evaluation End Date and 04/25/2018 09:57 PM Time (HH:MM): Date Signed: 04/25/2018 09:59 PM Electronically Signed By:Palak Brooks
--- NOTE | 2018-04-25 22:41 | ASMTTCLDSP ---
[facility] Discharge Disposition Disposition: Answers: Admit Disposition Notes: Notes: IN CONSULTATION WITH [facility] ED PHYSICIAN, AMY GRUBER MD AND ON-CALL PSYCHIATRIST, JAYLEN JAUREGUI MD, BOTH CONCURRED THAT PT APPEARS TO MEET 27-65 CRITERIA REQUIRING PSYCHIATRIC HOSPITALIZATION PT APPEARS TO BE AN IMMINENT RISK OF HARM TO OTHERS DUE TO A MENTAL ILLNESS CONDITION. PT WAS GIVEN THE 3 PROHIBITED BELONGINGS LIST WHILE IN THE ED. Discharge Concerns/Recommendations: Notes: Admitted to [address] [place] [address]. Was patient given the Answers: Yes Inpatient [facility] Prohibited Belongings List while in the ED? For inpatient Dr Jaylen Jauregui admission, the following psychiatrist agreed to accept patient for admission to [facility] ([facility]): Type of Hold: Answers: M1/72-hour Hold Hold initiated by: Answers: ED Physician Date Signed: 04/25/2018 10:40 PM Electronically Signed By:Palak Brooks
[2018-04-26] MEDS ORDERED: NICOTINE POLACRILEX 2 MG GUM B PRN (00:56)
[2018-04-26] MEDS ORDERED: ACETAMINOPHEN 325 MG TAB PO PRN (00:56)
[2018-04-26] MEDS ORDERED: MAGNESIUM HYDROXIDE 30 ML UDCUP PO PRN (00:56)
[2018-04-26] MEDS ORDERED: LORazepam 0.5 MG TAB PO PRN (00:56)
[2018-04-26] MEDS ORDERED: OLANZapine 5 MG TAB PO PRN (01:05)
[2018-04-26] MEDS ORDERED: QUEtiapine FUMARATE 100 MG TAB PO PRN (01:34)
[2018-04-26] MEDS ORDERED: QUEtiapine FUMARATE 100 MG TAB PO SCH ×2 (01:45→13:55)
[2018-04-26] MEDS: levETIRAcetam 500 MG TAB PO SCH ×2 (09:02→20:08)
--- NOTE | 2018-04-26 09:29 | ASMTBHMTP ---
Master Treatment Plan Master Treatment Plan Answers: Mood Instability with for: Psychosis Date: 04/26/2018 Diagnosis on Admission: Major Depressive Disorder, recurrent, with psychotic features 296.34 Expected length of stay: 3-5 Days Reason for admission: Notes: Per [facility] Evaluation - Pt. is a 37 year old , employed, male. Pt. said he has been off of his medication for about a month because he lost his Medicaid because he was making too much at his work at [employer]. Pt. reported that he wanted to spray windex in the eyes of a co-worker because he was annoying him. Pt. reported that when he is on his meds he doesn't have these dark thoughts. Patient's stated presenting problems: Notes: "Feeling in a dark place" Patient's goals for treatment: Notes: "Catching up on sleep" Patient's strengths: Notes: "Love history" Identify supports outside of hospital: Notes: " and daughter" Discharge criteria: Notes: Patient will demonstrate more stable mood by discharge. Initial disposition plan/considerations: Notes: Return home and to work Master Treatment Plan Required Signatures Psychiatrist signature: Answers: Psychiatrist: RN on-shift signature: Answers: RN: Patient signature: Answers: Patient: Date Signed: 04/26/2018 09:28 AM Electronically Signed By:Liv Enriquez
[2018-04-26] MEDS: ACETAMINOPHEN/ASA/CAFFEINE 1 EACH TAB PO PRN ×2 (09:34→20:07)
--- NOTE | 2018-04-26 11:14 | ASMTCMCOM ---
CM Note CM Note Notes: Pt and CC completed MTP and placed in pt's chart. Pt. requested to be called "[place]". Pt. denied any current legal issues. Pt. denied alcohol use. Pt. reports smoking THC "a little bit" adding he last smoked a "couple of nights ago". Pt. denied all other substance use. Pt. denied SI. Pt. reports HI, but denied to share who it's directed at, but reports it is not someone currently on the unit. Pt. reports VH of "dark images". Pt. reports having paranoia "always" adding it is related to his PTSD. Pt. presents as alert, guarded, passive in his answers, poor to fair eye contact, and cooperative. Staff report pt. sleeping 4 hours and being medication compliant. Date Signed: 04/26/2018 11:14 AM Electronically Signed By:Liv Enriquez
[2018-04-26] MEDS ORDERED: FLUoxetine 10 MG CAP PO ONE (13:54)
--- NOTE | 2018-04-26 13:58 | PDMN ---
Medical Necessity Medical necessity: Pt meets inpt criteria per MD order and [id number], Major Depressive Disorder, Adult: Inpatient Care, 3 days. 37 y/o admitted w/Major Depressive Disorder, recurrent, w/psychotic features, on M1 Hold due to risk of harm to others due to a mental illness, requires inpt psychiatric hospitalization.
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
--- NOTE | 2018-04-26 15:30 | BCON ---
INTERNAL MEDICINE CONSULTATION. DATE OF CONSULTATION: 04/26/2018 REFERRING PHYSICIAN: Enid Jauregui MD REASON FOR REFERRAL: Medical clearance for inpatient behavioral health stay. HISTORY OF PRESENT ILLNESS: This patient came to the emergency department yesterday complaining of "dark voices" getting worse and telling him to be aggressive toward others. He was evaluated by the mental health team and admitted for further psychiatric care. He currently complains of back pain and reports this has been a chronic issue since injury he sustained when he had seizures. He has a seizure disorder for which he takes levetiracetam. He reports that his thought she saw him having a seizure several days ago, but he does not know what she actually witnessed and has no recollection himself of the event. He is otherwise without any acute complaints. PAST MEDICAL HISTORY: 1. Psychiatric diagnoses including depression and PTSD. 2. Seizure disorder. 3. Vertebral compression fractures at T11 and L1. 4. Osteoporosis by DEXA in December of 2017. 5. Nephrolithiasis and right ureteral calculus on abdominal CT in February of 2018. PAST SURGICAL HISTORY: He had a recent septoplasty. MEDICATIONS: Prior to admission: 1. Levetiracetam 500 mg p.o. twice daily. 2. Zonisamide 400 mg p.o. at bedtime. 3. Quetiapine 600 mg p.o. at bedtime. 4. Fluoxetine 80 mg p.o. daily. ALLERGIES: There are no known drug allergies. SOCIAL HISTORY: He reports that he is . He works at [employer]. He is a smoker. FAMILY HISTORY: Noncontributory. REVIEW OF SYSTEMS: He has back pain. He thought it would improve with healing of his fractures. However, the actual x-ray diagnosis of the fractures appears to have been just 2-1/2 weeks ago. He says Excedrin is helpful to take the edge off but does not resolve the pain and he hurts worse if he is sitting up or standing. This has impaired his function at work. He denies headache, neurologic symptoms including weakness, numbness or tingling of the extremities , vision changes or difficulty swallowing, weight change, cough or dyspnea, chest pain or palpitations, nausea, vomiting, constipation, or diarrhea. Otherwise, a 10-point review of systems is negative. PHYSICAL EXAM: VITAL SIGNS: Blood pressure is 128/84, heart rate is 66, respiratory rate is 16, oxygen saturation is 99% on room air, temperature is 36.5 degrees centigrade. His weight is 77 kg for a body mass index of 22.5. GENERAL: This is a well-nourished, well-developed man, appears his chronologic age, lying in bed, sits up for the examination, cooperative and in no acute distress. HEENT: Extraocular movements are intact. Pupils are equal, round, reactive to light. Mucous membranes are moist. Dentition is in good condition. He has an uncrowded airway, Mallampati class 1. NECK: Supple. HEART: Regular rate and rhythm with no murmurs, rubs, or gallops. LUNGS: Clear to auscultation bilaterally. ABDOMEN: Benign. EXTREMITIES: There is no cyanosis, clubbing, or edema. NEUROLOGIC: He is alert and oriented x3. Cranial nerves 2-12 are grossly intact. There is no focal weakness. Sensation is intact to light touch. Deep tendon reflexes are 2+ bilaterally at the biceps , patella and Achilles tendons and gait is normal. LABORATORY STUDIES: Drawn yesterday in the emergency department. CBC revealed slight anemia with a hemoglobin of 12.1 and hematocrit of 38. MCV was normal at 83, mean cellular hemoglobin and mean cellular hemoglobin content were both slightly low at 26.4 and 31.8. Serum chemistry revealed normal renal function and electrolytes. Calcium was normal. Hemoglobin A1c was borderline elevated at 6.0. Liver function tests were normal including no elevation of alkaline phosphatase. Lipid panel revealed a normal cholesterol at 182 and elevated LDL at 112 and a normal HDL at 51. Toxicology screen in the serum was negative for ethyl alcohol and the urine was negative for any substances of abuse. ASSESSMENT/RECOMMENDATIONS: 1. Mental health issues pending further evaluation and management per Psychiatry and the mental health team. 2. Anemia of unclear etiology. He had recent surgery, but estimated blood loss was minimal, so doubt that this is postsurgical. It has been present on several previous medical encounters. I will add on an iron panel and reticulocyte count to further characterize the anemia. He should follow up with primary care after discharge to evaluate for occult GI blood loss and to consider referral to Gastroenterology. 3. Seizure disorder, on 2 anticonvulsants. He reports seizure several days ago , but it is unclear whether this really occurred. He had an EEG with no epileptogenic foci. He has had a normal brain MRI. Advise continuing his anticonvulsants and he can follow up with his neurologist, Dr. Nolberto Bray. Would avoid any medications that might lower the seizure threshold. 4. Back pain with history of compression fractures. Acetaminophen has been prescribed. I will add ibuprofen and he has plans to follow up with a retail sales specialist. 5. Osteoporosis with concurrent nephrolithiasis. He might have a disorder of calcium metabolism, though his current labs are not suggestive. I will add on a vitamin D level to rule out a low vitamin D. This can be a complication of anticonvulsants as well. Consider follow up with Endocrinology after discharge. I see no medical contraindications to this patient's continued stay on the inpatient behavioral health unit or to any psychiatric medications or procedures. Thank you very much for including me in the care of this patient and please do not hesitate to contact me or the hospitalist service should there be need for further medical evaluation. /[id number]/MODL MTDD
[2018-04-26] MEDS: ZONISAMIDE 100 MG CAP PO SCH (20:09)
[2018-04-26] MEDS ORDERED: PRAZOSIN HCL 1 MG CAP PO SCH (21:00)
[2018-04-27] MEDS: MAG HYDROX/AL HYDROX/SIMETH 30 ML UDCUP PO PRN ×3 (01:18→22:58)
[2018-04-27] MEDS: QUEtiapine FUMARATE 50 MG TAB PO PRN ×2 (01:29→18:04)
[2018-04-27 06:50] VITALS: BP 110/68
[2018-04-27] MEDS: levETIRAcetam 500 MG TAB PO SCH ×2 (08:36→20:05)
[2018-04-27] MEDS: IBUPROFEN 600 MG TAB PO PRN ×2 (08:54→20:04)
--- NOTE | 2018-04-27 08:56 | SOAPPROG ---
SOAP Progress Note Assessment/Plan: Assessment: Major Depressive Disorder, Severe, with mood congruent psychotic features, PTSD , Epilepsy. Improvement noted (see subjective/objective note). Patient could benefit from continued inpatient hospitalization for crisis stabilization, safety, and medication evaluation. Patient likely discharge tomorrow. Plan: 1. Psychotropic medications: After reviewing options, risks, and benefits patient agrees to continue current medications with following changes: increase Prazosin to 2 mg po QHS, increase Seroquel to 300 mg po QHS, and increase Prozac to 40 mg po QD. No other medication changes at this time as more time is needed to determine ongoing tolerability and efficacy. Plan is to continue to observe patient for response and side effects from medications, and ongoing monitoring and evaluation. 2. Review with patient informed consent and recommendations for psychotropic medication treatment listed below 3. Labs: no additional labs at this time 4. Therapy: continue milieu and group therapy 5. Further investigation including gathering information from patients relatives and review of past case records to inform treatment plan. 6. Safety/Wellness plan and follow-up outpatient appointments to be established prior to discharge. Next steps are for patient to meet with rn urgent care to plan a safe discharge plan and establish outpatient services for ongoing treatment. 7. Confer with inpatient treatment team regarding treatment plan. 8. Psychosocial stressors addressed through nurse case manager. 9. Legal status: voluntary 10. Consider discharge on Tuesday if patient is in stable condition, safe, and has a safe discharge plan. PSYCHOTROPIC MEDICATION TREATMENT INFORMED CONSENT and RECOMMENDATIONS: Review nature of condition, diagnosis, and prognosis. Review nature and purpose of psychotropic medication treatment. Review type of psychotropic medications being ordered. Review risk and benefits of psychotropic medication treatment. Review probable length of time patient will need to take medications. Review risk and benefits of not undergoing psychotropic medication treatment. Review alternative treatments to psychotropic medications. Review psychotropic medications contraindications, drug-drug interactions, side effects, and importance of reporting any side effects to a psychiatric provider or nurse during inpatient hospitalization, and upon discharge to patients psychiatric outpatient provider, primary care provider, or other health care team coordinator scheduler. Review importance of asking a nurse, psychiatric provider, or primary care provider any questions or problems concerning the psychotropic medications. Verify patient understands the information that has been provided, and understands, accepts, and agrees to psychotropic medications. Review patients safety plan and importance of patient to report to staff while hospitalized if patient is ever a danger to self/others, or unable to care for self, and upon discharge, the importance for patient to contact [facility] or [facility], or go to the nearest emergency room, if patient is ever a danger to self/others, or unable to care for self. Recommend that upon discharge patient establish medication management treatment with a psychiatric provider, establishes routine therapy appointments, and follow-up with primary care provider. Verify patient understands and agrees to these recommendations. 04/27/18 08:56 Subjective: Following up with patient for evaluation of depression, psychosis, and safety. Patient reports, "Didn't sleep very well last night. Had a nightmare, and these beds are not comfortable." Patient expresses the following psychiatric symptoms severe depression. Patient denies AH. Patient reports taking medications as prescribed, and describes response to medications as fair. Patient does not report undesirable side effects from the medications, and agrees to continue current medications. Patient describes getting 6 hours of sleep, reports sleep was on and off throughout the night. Patient agrees to increase Prazosin to 2 mg po QHS, increase Seroquel to 300 mg po QHS, and increase Prozac to 40 mg po QD. Patient reports doses prior to admission: Prozac 80 mg po QD (not taken for 2 days prior to admission and Seroquel 600 mg po QHS, not taken for several weeks prior to admission). Objective: Vital Signs Temp Pulse Resp BP Pulse Ox 36.5 C 78 14 110/68 96 04/27/18 06:00 04/27/18 06:00 04/27/18 06:00 04/27/18 06:00 04/27/18 06:00 NURSING REPORT: Consulted with nursing for update on patients progress in treatment. Nurses report patient is engaged in treatment, is attending groups, slept 8 hours, expresses the following psychiatric symptoms: depression, exhibits the following psychiatric symptoms: none, is eating all meals, is agreeable to medications and taking as prescribed with no report of side effects , with no s/s of EPS/akathisia, and denies SI/HI, denies A/V hallucinations, and denies delusions. MSE: The patient is a well-nourished male looking stated chronological age. Attire is appropriate dress is casual. Grooming status is appropriate. Ambulation is independent. Gait is normal and coordinated. Posture is normal and relaxed. Eye contact is appropriate. Motor activity is appropriate with purposeful, organized, coordinated movements; with no involuntary movements. Attitude is cooperative. Patient appears attentive and relates well to this interviewer. Language production is spontaneous. R/R/V normal. Articulation is clear. Patient reports mood as depressed with congruent affect. Patients thought process is linear and logical with no signs of thought disorder. Patient does not report suicidal/homicidal thoughts, ideas, or plans. Patient denies auditory, visual hallucinations. Patient does not report delusions. Patient does not appear to be attending to internal stimuli. Patients attention and concentration are adequate. Patient is oriented to person, place , time. Patients insight is poor. Patients judgment is poor. - Time Spent With Patient Time Spent With Patient: 15 minutes, met with patient individually. - Pending Discharge Pending Discharge Within 24 Hours: No Pending Discharge Within 48 Hours: No ICD10 Worksheet Patient Problems: Problems Problem Status Onset Acute psychosis Acute PTSD (post-traumatic stress disorder) Acute Nasal obstruction Acute
[2018-04-27] MEDS ORDERED: FLUoxetine 20 MG CAP PO ONE (08:58)
[2018-04-27] MEDS ORDERED: PRAZOSIN HCL 1 MG CAP PO SCH (09:00)
[2018-04-27] MEDS ORDERED: FLUoxetine 20 MG CAP PO SCH (09:00)
[2018-04-27] MEDS ORDERED: QUEtiapine FUMARATE 100 MG TAB PO SCH (09:00)
[2018-04-27] MEDS: ACETAMINOPHEN/ASA/CAFFEINE 1 EACH TAB PO PRN ×2 (09:11→18:31)
--- NOTE | 2018-04-27 11:53 | ASMTCMCOM ---
CM Note CM Note Notes: This chief writer spoke with Valarie Alfonso, [facility] telephonic nurse case manager, to coordinate follow up care for the patient. The patient's next scheduled appointment with Valarie is on May 03 @ 13:30. The patient refused to participate in clinical treatment team rounds; without explanation. According to [facility] staff, he is "quiet and withdrawn" on the unit and medication compliant. Date Signed: 04/27/2018 11:53 AM Electronically Signed By:Destiney Flores
[2018-04-27] MEDS: FERROUS SULFATE 325 MG TAB PO SCH (12:34)
[2018-04-27] MEDS: ZONISAMIDE 100 MG CAP PO SCH (20:05)
[2018-04-28] MEDS: MAG HYDROX/AL HYDROX/SIMETH 30 ML UDCUP PO PRN (05:21)
[2018-04-28] MEDS: QUEtiapine FUMARATE 50 MG TAB PO PRN (05:21)
[2018-04-28] MEDS: levETIRAcetam 500 MG TAB PO SCH (08:20)
[2018-04-28] MEDS: ACETAMINOPHEN/ASA/CAFFEINE 1 EACH TAB PO PRN (08:20)
[2018-04-28] MEDS: FERROUS SULFATE 325 MG TAB PO SCH (08:20)
[2018-04-28] MEDS ORDERED: FLUoxetine 20 MG CAP PO SCH (09:00)
--- NOTE | 2018-04-28 10:17 | BDS ---
REASON FOR ADMISSION: From the ED note dated 04/25/2018, patient reported dark voices that were getting worse. Patient reported being off his psychiatric medications for approximately 1 month, reported dark voices getting worse, telling him to be aggressive toward others. Patient reported concerns that if what he was experiencing worsened, that he would eventually act on these thoughts. Patient was admitted voluntarily due to feeling a danger toward others. Patient was admitted for safety, crisis stabilization, and medication management. ADMITTING DIAGNOSES: 1. Major depressive disorder, recurrent episode, severe, with mood congruent psychotic features. 2. Posttraumatic stress disorder. 3. Epilepsy. ADMISSION PHYSICAL EXAM: Patient was seen for an Internal Medicine consultation on 04/26/2018, for medical clearance for inpatient psychiatric hospitalization and treatment. Patient was medically cleared for inpatient psychiatric hospitalization and treatment. For further details, please refer to consultation note dated 04/26/2018. ADMISSION LABS: 1. CBC from 04/25/2018, within normal limits, except hemoglobin was low at 12.1 , hematocrit was low at 38.0, MCH was low at 26.4, and MCHC was low at 31.8. 2. BMP was within normal limits. 3. Hemoglobin A1c within normal limits at 6.0. 4. Iron low at 26.0. 5. Iron saturation low at 7. 6. Liver function within normal limits. 7. Lipid panel within normal limits, except LDL cholesterol calculated was elevated at 112. Non-HDL cholesterol was elevated at 131. 8. 25-OH vitamin D total 35.8. 9. Toxicology screen negative for all substances screened and negative for ethyl alcohol. 10. Repeat hematocrit on 04/25/2018, was low at 39.1. 11. Absolute reticulocyte count was low at 0.040. 12. Percent reticulocyte count was low at 0.82. MAJOR PROCEDURES OR TESTS: None. HOSPITAL COURSE: The most prominent symptoms and behaviors while the patient was here were reports of severe depression with auditory hallucinations. Patient reported command hallucinations to be aggressive toward others. The treatment modalities utilized were milieu and group therapy. Seroquel 100 mg p.o. q.h.s. was started and titrated to 300 mg p.o. q.h.s. to target depression and psychosis symptoms, was tolerated with no report of side effects and with good response. Prozac 20 mg p.o. daily was started and titrated to 40 mg p.o. daily to target depression and PTSD symptoms, was tolerated with no report of side effects and with good response. Keppra 500 mg p.o. b.i.d. was continued to target seizure, was tolerated with no report of side effects and with good response. Zonegran 100 mg p.o. q.h.s. was started for seizure, was tolerated with no report of side effects and with good response. Patient has improved considerably, with no signs of psychiatric symptoms and no psychiatric symptoms expressed at time of discharge. Patient reports he has improved since admission , states to be in stable condition, feels safe to discharge, and he contracts for safety. Patient's response to treatment was good. There were no adverse or unexpected results of treatment. The patient was safe throughout his stay, active in treatment, engaged in groups, and was appropriate with staff and other patients. The patient met with the treatment team prior to discharge to assess readiness to discharge and review discharge plan. The treatment team consensus is the patient is in stable condition, has a safe discharge plan, and is ready to discharge today. CONDITION ON DISCHARGE: Patient is in stable condition and is no longer a danger to self or others, and is not gravely disabled due to mental illness. Patient is no longer in need of inpatient level of care, and can be safely and effectively treated within the community. The patients level of risk at time of discharge is low. MSE: The patient is casually dressed and with good hygiene , and looks stated age. Patient is sitting, posture is upright, and position is relaxed. Patient appears awake, alert, and responds appropriately and reasonably during interview. Patient is engaged, relates well to interviewer, and emotional facial expression is appropriate to situation and changes appropriately with topic. Patient is cooperative, makes comfortable eye contact , and movements are voluntary, deliberate, coordinated, and smooth and even with no inappropriate movements. Patient makes laryngeal sounds effortlessly and shares conversation appropriately; pace of conversation is appropriate, and stream of talking is fluent; articulation is clear and understandable; word choice is effortless and appropriate for education level; completes sentences, occasionally pausing to think; rate and volume are appropriate for interview and setting. Patient reports mood as euthymic. Patients affect is stable with full variable range, congruent with mood, and appropriate to speech and circumstances. Patient has linear and logical thinking, with no loose associations, tangential thought, thought blocking, concrete thinking, or any other signs of formal thought disorder. Patient denies suicidal and homicidal ideation, and denies hallucinations and delusions. Patient appears to be a reliable historian with sound judgement and good insight into current condition. Patient has no apparent dysfunction in recent or remote memory noted , and no evidence of gross cognitive dysfunction noted at any point during the interview. DISCHARGE DIAGNOSES: 1. Major depressive disorder, recurrent episode, severe, with mood congruent psychotic features. 2. Posttraumatic stress disorder. 3. Epilepsy. CURRENT MEDICATIONS: After reviewing options, risks and benefits with the patient, the patient agrees to continue: 1. Prozac 40 mg p.o. daily. 2. Prazosin 2 mg p.o. q.h.s. 3. Zonegran 100 mg p.o. q.h.s. 4. Seroquel 300 mg p.o. q.h.s. 5. Keppra 500 mg p.o. b.i.d. The patient requests prescriptions for these medications at time of discharge. Prescriptions for 30 days for each of the above-listed medications are provided. Prescriptions are reviewed with the patient at time of discharge to ensure accuracy and patient understanding. DISPOSITION: Patient left hospital independently and voluntarily with his and plans to return home. FOLLOWUP: grievance and appeals coordinator reports the appropriate outpatient follow-up services have been established and outpatient appointments have been scheduled. The patient received written instructions with times and dates of outpatient follow-up appointments. The following follow-up recommendations were provided to the patient at discharge: Continue psychotropic medications as prescribed and attend appointments as scheduled. Report any side effects to a psychiatric outpatient provider, a primary care provider, or other health hearing care professional. Address any questions or problems concerning the psychotropic medications with a psychiatric outpatient provider, a primary care provider, or other health hearing care professional. Contact [facility] or [facility], or go to the nearest emergency room, if you are ever a danger to yourself/others, or unable to care for yourself. As soon as possible, establish a routine medication management treatment with a psychiatric provider, establish routine therapy appointments, and follow-up with a primary care provider. LEGAL COURSE: Patient was admitted voluntarily and discharged today independently and voluntarily. ATTITUDE AT TIME OF DISCHARGE: The patients attitude was positive at time of discharge, and patient reports looking forward to discharging today. The patient reports he feels safe to discharge, is no longer a danger to himself or others, is in stable condition, and contracts for safety. Patient states he will continue medications as prescribed, and establish medication management treatment with an outpatient provider after discharge. Patient reports he understands the information that has been provided to him, and he understands, accepts, and agrees to psychotropic medications. Patient describes internal protective factors as the coping skills he has learned while hospitalized here, and he plans to continue to practice these coping skills after discharge. LABS AND STUDIES: There were no pending labs or studies at time of discharge. ADVANCE DIRECTIVES: There were no advance directives on file, and patient was full code during this hospitalization. The following psychotropic medication treatment informed consent and recommendations were provided to the patient at time of discharge. Patient reports he understands, accepts, and agrees to the information that has been provided. PSYCHOTROPIC MEDICATION TREATMENT INFORMED CONSENT and RECOMMENDATIONS: Review nature of condition, diagnosis, and prognosis. Review nature and purpose of psychotropic medication treatment. Review risk and benefits of psychotropic medication treatment. Review probable length of time will need to take medications. Review risk and benefits of not undergoing psychotropic medication treatment. Review alternative treatments to psychotropic medications. Review psychotropic medications contraindications, side effects, and importance of reporting any side effects to a psychiatric provider, primary care provider, or other health hearing care professional. Review safety plan and the importance to contact [facility] or [facility] , or go to the nearest emergency room, if ever a danger to yourself/others, or unable to care for yourself. Recommend upon discharge to establish routine medication management treatment with a psychiatric provider, establish routine therapy appointments, and follow-up with a primary care provider. Verify patient understands, accepts, and agrees to the information that has been provided. /[id number]/[id number]
== END 2018-04-28 11:38 | disposition home or self-care (01) | DRG 885 ==
LOC: BBEH 04-26 00:36
PROVIDERS: ADMIT Psychiatry & Neurology Behavioral Neurology & Neuropsychiatry; ATTEND Psychiatry & Neurology Behavioral Neurology & Neuropsychiatry
DX: F32.3 Major depressive disorder, single episode, severe with psychotic features (principal); R44.0 Auditory hallucinations; F43.10 Post-traumatic stress disorder, unspecified; D64.9 Anemia, unspecified; M54.9 Dorsalgia, unspecified; F17.210 Nicotine dependence, cigarettes, uncomplicated; G40.909 Epilepsy, unspecified, not intractable, without status epilepticus; M81.0 Age-related osteoporosis without current pathological fracture; Z87.442 Personal history of urinary calculi
CPT/HCPCS: 80305; G0480

== ENCOUNTER 2018-07-14 11:54 | Emergency (ER) | payer MEDICAID, OTHER ==
--- NOTE | 2018-07-14 13:18 | EDPHY ---
H & P Stated Complaint: n/v diarrhea l abd pain Time Seen by Provider: 07/14/18 13:17 HPI/ROS: HPI: This is a 38-year-old male who presents with Chief Complaint: n/v diarrhea l abd pain Location: Left flank Quality: Pain Duration: Since this morning Signs and Symptoms: no fever, + nausea, + vomiting, no hematemesis, no blood in stool, no abdominal bloating, + diarrhea, no back pain, no urinary symptoms, no testicular/groin pain, no indigestion, no chest pain, no shortness of breath Timing: Acute onset, constant Severity: Moderate Context: Patient presents with sudden onset this morning of left flank pain that was radiating into his back accompanied by nausea and 1 episode of vomiting and diarrhea. Patient denies any fever, difficulty urinating, dysuria , blood in his urine. Patient reports that he is able to eat and drink without difficulty. No history of abdominal surgeries. No history of kidney stones. Patient reports that he has had no heavy lifting and denies shortness of breath , chest pain, palpitations. He reports that the pain is better at this time. Modifying Factors: None Comment: ROS: A comprehensive 10 system review of systems is otherwise negative aside from elements mentioned in the history of present illness. MEDICAL/SURGICAL/SOCIAL HISTORY: Medical history: Left spontaneous pneumothorax, depression, PTSD, seizures, FX SPINE, osteoporosis Surgical history: Deviated septum surgery Social history: Current every day smoker. Family history noncontributory. CONSTITUTIONAL: Extremely well-appearing middle-aged white male, awake and alert, no obvious distress HEENT: Atraumatic and normocephalic, PERRL, EOMI. Nares patent; no rhinorrhea; no nasal mucosal edema. Tympanic membranes clear. Oropharynx clear, no exudate and moist pink mucosa. Airway patent. No lymphadenopathy. No meningismus. Cardiovascular: Normal S1/S2, regular rate, regular rhythm, without murmur rub or gallop. PULMONARY/CHEST: Symmetrical and nontender. Clear to auscultation bilaterally. Good air movement. No accessory muscle usage. ABDOMEN: Soft, nondistended, nontender, no rebound, no guarding, no peritoneal signs, no masses or organomegaly. No CVAT. EXTREMITIES: 2/2 pulses, strength 5/5, no deformities, no clubbing, no cyanosis or edema. NEUROLOGICAL: no focal neuro deficits. GCS 15. SKIN: Warm and dry, no erythema. no rash. Good capillary refill. Source: Patient Exam Limitations: No limitations - Personal History Current Tetanus Diphtheria and Acellular Pertussis (TDAP): Yes Tetanus Vaccine Date: < 10 years - Medical/Surgical History Hx Asthma: No Hx Chronic Respiratory Disease: No Hx Diabetes: No Hx Cardiac Disease: No Hx Renal Disease: No Hx Cirrhosis: No Hx Alcoholism: Yes Hx HIV/AIDS: No Hx Splenectomy or Spleen Trauma: No Other PMH: Left spontaneous pneumothorax,. depression, PTSD, seizures, FX SPINE , osteoporosis. surg for deviated septum - Social History Smoking Status: Current every day smoker Constitutional: Initial Vital Signs Temperature (C) 36.7 C 07/14/18 11:58 Heart Rate 87 07/14/18 11:58 Respiratory Rate 17 07/14/18 11:58 Blood Pressure 122/74 H 07/14/18 11:58 O2 Sat (%) 98 07/14/18 11:58 O2 Delivery Mode Room Air Allergies/Adverse Reactions: No Known Allergies Allergy (Verified 07/14/18 11:57) Home Medications: Medication Instructions Recorded Acetaminophen [Tylenol 325mg (*)] 650 mg PO Q4HRS PRN tab 04/28/18 Acetaminophen/ASA/Caffeine 1 each PO Q6HRS PRN tab 04/28/18 [Excedrin Tablet (*)] FLUoxetine [Prozac 20 MG (*)] 40 mg PO DAILY 30 Days #60 cap 04/28/18 Ferrous Sulfate [Ferrous Sulf 325 325 mg PO DAILY tab 04/28/18 MG (*)] Ibuprofen [Motrin (*)] 600 mg PO Q6HRS PRN tab 04/28/18 Prazosin HCl [Minipress 1mg (*)] 2 mg PO HS 30 Days #60 cap 04/28/18 QUEtiapine FUMARATE [Seroquel 300 mg PO HS 30 Days #30 tab 04/28/18 300mg (*)] Zonisamide [Zonegran 100MG (*)] 100 mg PO HS 30 Days #30 cap 04/28/18 levETIRAcetam [Keppra 500 mg (*)] 500 mg PO BID 30 Days #60 tab 04/28/18 Ondansetron Odt [Zofran Odt 4 mg 4 mg PO Q4 PRN #12 tab 07/14/18 (*)] Tamsulosin HCl [Flomax 0.4 MG (*)] 0.4 mg PO DAILY #10 cap 07/14/18 oxyCODONE/APAP 5/325 [Percocet 1 - 2 tab PO Q4H PRN #10 tab 07/14/18 5/325 (*)] Medical Decision Making - Diagnostics Imaging Results: Imaging Impressions Abdomen/Pelvis CT 07/14/18 13:34 Impression: 1. Bilateral small renal stones, at about 2 mm in size each. 2. A 2 mm left ureterovesical junction stone basically protruding into the bladder, causing mild hydronephrosis. Findings and recommendations discussed with Sabina Dalal at 3:00 PM, 2018. Final report concurs with initial preliminary interpretation. Attention: This examination does not use radiographic contrast, and as such, provides only a limited evaluation of the abdomen, pelvis, and retroperitoneum. If there is further clinical suspicion for pathological conditions, a complete CT evaluation of the abdomen and pelvis utilizing intravenous, oral, and rectal contrast should be considered. ED Course/Re-evaluation: Vital signs reviewed and stable upon arrival. No systemic signs. IV access, laboratory studies, urinalysis, CT abdomen and pelvis scan without contrast ordered Given 1 L normal saline Patient currently has no pain and politely declined any pain medication. 1400: Labs reviewed. WBC 12 K, H&H 11.3/35.6, creatinine 1.5, glucose 167 1515: Called By Radiology, Dr. Milligan, advised that CT abdomen and pelvis scan without contrast shows 2 mm left ureterovesical junction stone basically protruding into the bladder, causing mild hydronephrosis. Patient is currently pain-free and urinating without difficulty. Given Flomax, Percocet, Zofran with Urology follow-up. This patient was seen under the supervision of my secondary supervising physician. I evaluated care for this patient with attending. Discussed this patient with Dr. Go. Differential Diagnosis: Flank pain including but not limited to musculoskeletal causes, kidney stone, pyelonephritis, shingles, and intra-abdominal causes such as diverticulitis and appendicitis. - Data Points Laboratory Results: Laboratory Results 07/14/18 13:30 07/14/18 13:30 07/14/18 07/14/18 13:30 13:30 WBC 11.47 10^3/uL H 10^3/uL (3.80-9.50) RBC 4.60 10^6/uL 10^6/uL (4.40-6.38) Hgb 11.3 g/dL L g/dL (13.7-17.5) Hct 35.6 % L % (40.0-51.0) MCV 77.4 fL L fL (81.5-99.8) MCH 24.6 pg L pg (27.9-34.1) MCHC 31.7 g/dL L g/dL (32.4-36.7) RDW 15.0 % % (11.5-15.2) Plt Count 297 10^3/uL 10^3/uL (150-400) MPV 10.1 fL fL (8.7-11.7) Neut % (Auto) Not Reported Lymph % (Auto) Not Reported [place] % (Auto) Not Reported Eos % (Auto) Not Reported Baso % (Auto) Not Reported Nucleat RBC Rel Count Not Reported Absolute Neuts (auto) Not Reported Absolute Lymphs (auto) Not Reported Absolute Monos (auto) Not Reported Absolute Eos (auto) Not Reported Absolute Basos (auto) Not Reported Absolute Nucleated RBC Not Reported Immature Gran % Not Reported Seg Neutrophils % 86.9 % % Band Neutrophils % 0.0 % % Lymphocytes % 8.1 % % Monocytes % 3.0 % % Eosinophils % 2.0 % % Basophils % 0.0 % % Metamyelocytes % 0.0 % % Myelocytes % 0.0 % % Promyelocytes % 0.0 % % Blast Cells % 0.0 % % Immature Gran # Not Reported Absolute Seg Neuts 9.97 10^3/uL H 10^3/uL (1.70-6.50) Absolute Band Neuts 0.00 10^3/uL 10^3/uL (0.00-0.70) Absolute Lymphocytes 0.93 10^3/uL L 10^3/uL (1.00-3.00) Absolute Monocytes 0.34 10^3/uL 10^3/uL (0.30-0.80) Absolute Eosinophils 0.23 10^3/uL 10^3/uL (0.03-0.40) Absolute Basophils 0.00 10^3/uL L 10^3/uL (0.02-0.10) Absolute Metamyelocyte 0.00 10^3/mL 10^3/mL (0.00-0.00) Absolute Myelocytes 0.00 10^3/mL 10^3/mL (0.00-0.00) Absolute Promyelocytes 0.00 10^3/uL 10^3/uL (0.00-0.00) Absolute Plasma Cells 0.00 10^3/uL 10^3/uL (0.00-0.00) Nucleated RBCs 0 /100 WBC /100 WBC (0-0) Absolute Blast Cells 0.00 10^3/uL 10^3/uL (0.00-0.00) Plasma Cells % 0.0 % % Platelet Estimate ADEQUATE (ADEQ) Polychromasia 1+ H Sodium 138 mEq/L mEq/L (135-145) Potassium 4.1 mEq/L mEq/L (3.5-5.2) Chloride 106 mEq/L mEq/L (97-110) Carbon Dioxide 23 mEq/l mEq/l (22-31) Anion Gap 9 mEq/L mEq/L (6-14) BUN 18 mg/dL mg/dL (7-23) Creatinine 1.5 mg/dL H mg/dL (0.7-1.3) Estimated GFR 52 Glucose 167 mg/dL H mg/dL (70-100) Calcium 8.9 mg/dL mg/dL (8.5-10.4) Total Bilirubin 0.2 mg/dL mg/dL (0.1-1.4) Conjugated Bilirubin 0.2 mg/dL mg/dL (0.0-0.5) Unconjugated Bilirubin 0.0 mg/dL mg/dL (0.0-1.1) AST 35 IU/L IU/L (17-59) ALT 56 IU/L IU/L (21-72) Alkaline Phosphatase 88 IU/L IU/L (38-126) Total Protein 7.2 g/dL g/dL (6.3-8.2) Albumin 3.9 g/dL g/dL (3.5-5.0) Lipase 110 IU/L IU/L (23-300) Medications Given: Discontinued Medications Sodium Chloride (Ns) 1,000 mls @ 0 mls/hr IV ONCE ONE; Wide Open PRN Reason: Protocol Stop: 07/14/18 13:35 Last Admin: 07/14/18 13:35 Dose: 1,000 mls Departure - Departure Disposition: Home, Routine, Self-Care Clinical Impression: Nephrolithiasis, Ureterolithiasis, Renal colic on left side Condition: Good Instructions: Renal Colic (ED), Ureteral Stones (ED) Additional Instructions: Consume a minimum of 8-10 glasses of water or electrolyte fluid replacement drinks that include Gatorade, Powerade, Pedialyte. Take Flomax daily until stone passes. Take Zofran every 4-6 hours as needed for nausea, vomiting. Strain all of your urine until your stone passes. Take Tylenol 650 mg every 4 hours and/or Ibuprofen 600 mg every 8 hours with food as needed for pain. Use Percocet every 6 hours as needed for severe/break through pain. Do not use Tylenol and Percocet concomitantly. Follow-up with Urology in the next 1-2 weeks. Referrals: Eitan Doe MD [Medical Doctor] - As per Instructions Prescriptions: Ondansetron Odt [Zofran Odt 4 mg (*)] 4 mg PO Q4 PRN #12 tab PRN Reason: Nausea/Vomiting, Use 1st oxyCODONE/APAP 5/325 [Percocet 5/325 (*)] 1 - 2 tab PO Q4H PRN #10 tab PRN Reason: Pain, Severe Tamsulosin HCl [Flomax 0.4 MG (*)] 0.4 mg PO DAILY #10 cap
[2018-07-14] MEDS ORDERED: NS 1,000 ML IV ONE (13:34)
[2018-07-14 13:43] LABS: PLATELET COUNT 297 10^3/uL (150-400)
[2018-07-14 15:57] VITALS: BP 138/81
== END 2018-07-14 15:56 | disposition home or self-care (01) ==
DX: N13.0 Hydronephrosis with ureteropelvic junction obstruction (principal); N20.0 Calculus of kidney; E86.9 Volume depletion, unspecified

== ENCOUNTER 2018-07-19 17:15 | Emergency (ER) | payer MEDICAID, OTHER ==
[2018-07-19 17:40] LABS: PLATELET COUNT 491 10^3/uL (150-400)
[2018-07-19] MEDS ORDERED: LORazepam 2 MG/ML INJ ONE ×2 (17:46→17:50)
[2018-07-19] MEDS ORDERED: LORazepam 2 MG/ML INJ IVP ONE (17:50)
--- NOTE | 2018-07-19 17:50 | EDPHY ---
H & P Stated Complaint: seizure Time Seen by Provider: 07/19/18 17:18 HPI/ROS: Chief Complaint: Seizure HPI: 38 year old male presents via EMS after a witnessed seizure at work. Patient can provide only limited history as he is post-ictal. Initial evaluation and history limited as hospital computers are down due to computer malfunction. Patient reports feeling "fine" prior to seizure. States he has a history of seizures and takes Keppra. Denies drug use or alcohol use. No fever, chills, chest pain, shortness of breath, palpitations, vomiting, diarrhea, urinary complaints, headache, lightheadedness. REVIEW OF SYSTEMS:Aside from elements discussed in the HPI, a comprehensive 10- point review of systems was reviewed and is negative. Note patient somewhat irritable and sleepy when answering questions. Oriented only to person and place so ROS may be limited. PAST MEDICAL HISTORY: Seizures. 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 Denies illicit drug use. VITAL SIGNS: see nurses notes. GENERAL: Well-developed, well-nourished, in no acute distress. No head or facial trauma noted. HEENT: Normal, no discharge or icterus, moist mucous membranes. No intra oral trauma noted. Neck: supple, FROM. Nontender to palpation. No menigisus, neg kernig, neg brudzinski. LUNGS: Clear to auscultation bilaterally, no wheezes, rhonchi or rales. CARDIAC: Tachycardic rate and regular rhythm, no rubs, murmurs or gallops. ABDOMEN: Soft, nontender, nondistended, bowel sounds normal. BACK: No CVA tenderness. No vertebral tenderness. EXTREMITIES: No edema, FROM. No trauma. NEURO: Alert and oriented x 2. STEWART equally, PERRL, EOMI, no nystagmus, grossly nonfocal. SKIN: Warm and dry, no rash. - Personal History Tetanus Vaccine Date: < 10 years - Medical/Surgical History Hx Asthma: No Hx Chronic Respiratory Disease: No Hx Diabetes: No Hx Cardiac Disease: No Hx Renal Disease: No Hx Cirrhosis: No Hx Alcoholism: Yes Hx HIV/AIDS: No Hx Splenectomy or Spleen Trauma: No Other PMH: Left spontaneous pneumothorax,. depression, PTSD, seizures, FX SPINE , osteoporosis. surg for deviated septum - Social History Smoking Status: Current every day smoker Constitutional: Initial Vital Signs Heart Rate 119 H 07/19/18 17:18 Respiratory Rate 17 07/19/18 17:18 Blood Pressure 125/60 H 07/19/18 17:18 O2 Sat (%) 94 07/19/18 17:18 O2 Delivery Mode Room Air O2 (L/minute) 2 Allergies/Adverse Reactions: No Known Allergies Allergy (Verified 07/14/18 11:57) Home Medications: Medication Instructions Recorded Acetaminophen [Tylenol 325mg (*)] 650 mg PO Q4HRS PRN tab 04/28/18 Acetaminophen/ASA/Caffeine 1 each PO Q6HRS PRN tab 04/28/18 [Excedrin Tablet (*)] FLUoxetine [Prozac 20 MG (*)] 40 mg PO DAILY 30 Days #60 cap 04/28/18 Ferrous Sulfate [Ferrous Sulf 325 325 mg PO DAILY tab 04/28/18 MG (*)] Ibuprofen [Motrin (*)] 600 mg PO Q6HRS PRN tab 04/28/18 Prazosin HCl [Minipress 1mg (*)] 2 mg PO HS 30 Days #60 cap 04/28/18 QUEtiapine FUMARATE [Seroquel 300 mg PO HS 30 Days #30 tab 04/28/18 300mg (*)] Zonisamide [Zonegran 100MG (*)] 100 mg PO HS 30 Days #30 cap 04/28/18 levETIRAcetam [Keppra 500 mg (*)] 500 mg PO BID 30 Days #60 tab 04/28/18 Ondansetron Odt [Zofran Odt 4 mg 4 mg PO Q4 PRN #12 tab 07/14/18 (*)] Tamsulosin HCl [Flomax 0.4 MG (*)] 0.4 mg PO DAILY #10 cap 07/14/18 oxyCODONE/APAP 5/325 [Percocet 1 - 2 tab PO Q4H PRN #10 tab 07/14/18 5/325 (*)] Medical Decision Making - Diagnostics Imaging Results: CT Head: Impression: There is no acute intracranial abnormality identified on this unenhanced CT evaluation, or substantial change from previous studies in 2018. If there is further clinical concern regarding the patient's symptoms, MR imaging is suggested, if not otherwise contraindicated. Findings were discussed with Diane, the medical lab technologist for Jennifer Gurrola MD at 18:36, on 2018. Dictated By: Branden Ring MD Imaging: Discussed imaging studies w/ callisthenics instructor Radiologist ED Course/Re-evaluation: Patient had a witnessed seizure shortly after arrival. Ativan [address] ordered. 18:[address] Ring, radiologist. CT head is negative for acute processes. Labs all reassuring except depressed bicarb consistent with seizure previously, as well as CBC differential. Will discuss follow up with patient when no longer post ictal. Urine tox neg. Alcohol neg. Patient unable to tell me dose of Keppra. Given additional 500mg po Keppra. Mentation cleared appropriately. Discharged to his . VS stabilitzed and HR trended downwards. See DC instructions. Differential Diagnosis: Diff dx considerd included but not limited to breakthru seizure, medication noncompliance, drug or alchohol intoxication or withdrawal, head trauma, infection, sleep deprivation, intracranial pathology. - Data Points Laboratory Results: Laboratory Results 07/19/18 17:35 07/19/18 17:33 Medications Given: Discontinued Medications Levetiracetam (Keppra) 500 mg PO EDNOW ONE Stop: 07/19/18 19:48 Last Admin: 07/19/18 20:03 Dose: 500 mg Lorazepam (Ativan Injection) 2 mg IVP EDNOW ONE Stop: 07/19/18 17:51 Last Admin: 07/19/18 17:52 Dose: 2 mg Departure - Departure Disposition: Home, Routine, Self-Care Clinical Impression: Seizure disorder Condition: Good Instructions: Recurrent Seizures in Adults (ED) Additional Instructions: Please follow up with your neurologist as soon as possible. Continue taking your Keppra as directed. No driving until you are seen by Neurology. Follow up with your PCP concerning your blood studies. Referrals: Patient,NotPresent [Unknown] - As per Instructions Gurvinder Brown MD [Medical Doctor] - As per Instructions
[2018-07-19] MEDS ORDERED: levETIRAcetam 500 MG TAB PO ONE (19:47)
[2018-07-19 21:31] VITALS: BP 112/85
== END 2018-07-19 21:31 | disposition home or self-care (01) ==
LOC: EDUNIT# → EEVIPCON 17:15
DX: G40.909 Epilepsy, unspecified, not intractable, without status epilepticus (principal)
CPT/HCPCS: 80305; 96374; G0480; J2060

== ENCOUNTER 2018-08-07 13:42 | Emergency (ER) | payer SELFPAY ==
[2018-08-07 13:46] VITALS: BP 108/61
--- NOTE | 2018-08-07 13:47 | EDPHY ---
H & P Stated Complaint: Reddish urine Time Seen by Provider: 08/07/18 13:46 - Personal History Tetanus Vaccine Date: < 10 years - Medical/Surgical History Hx Asthma: No Hx Chronic Respiratory Disease: No Hx Diabetes: No Hx Cardiac Disease: No Hx Renal Disease: No Hx Cirrhosis: No Hx Alcoholism: Yes Hx HIV/AIDS: No Hx Splenectomy or Spleen Trauma: No Other PMH: Left spontaneous pneumothorax,. depression, PTSD, seizures, FX SPINE , osteoporosis. surg for deviated septum - Social History Smoking Status: Current every day smoker Constitutional: Initial Vital Signs Temperature (C) 36.9 C 08/07/18 13:44 Heart Rate 88 08/07/18 13:44 Respiratory Rate 16 08/07/18 13:44 Blood Pressure 108/61 08/07/18 13:44 O2 Sat (%) 99 08/07/18 13:44 O2 Delivery Mode Room Air Allergies/Adverse Reactions: No Known Allergies Allergy (Verified 08/07/18 13:44) Home Medications: Medication Instructions Recorded Acetaminophen [Tylenol 325mg (*)] 650 mg PO Q4HRS PRN tab 04/28/18 Acetaminophen/ASA/Caffeine 1 each PO Q6HRS PRN tab 04/28/18 [Excedrin Tablet (*)] FLUoxetine [Prozac 20 MG (*)] 40 mg PO DAILY 30 Days #60 cap 04/28/18 Ferrous Sulfate [Ferrous Sulf 325 325 mg PO DAILY tab 04/28/18 MG (*)] Ibuprofen [Motrin (*)] 600 mg PO Q6HRS PRN tab 04/28/18 Prazosin HCl [Minipress 1mg (*)] 2 mg PO HS 30 Days #60 cap 04/28/18 QUEtiapine FUMARATE [Seroquel 300 mg PO HS 30 Days #30 tab 04/28/18 300mg (*)] Zonisamide [Zonegran 100MG (*)] 100 mg PO HS 30 Days #30 cap 04/28/18 levETIRAcetam [Keppra 500 mg (*)] 500 mg PO BID 30 Days #60 tab 04/28/18 Ondansetron Odt [Zofran Odt 4 mg 4 mg PO Q4 PRN #12 tab 07/14/18 (*)] Tamsulosin HCl [Flomax 0.4 MG (*)] 0.4 mg PO DAILY #10 cap 07/14/18 oxyCODONE/APAP 5/325 [Percocet 1 - 2 tab PO Q4H PRN #10 tab 07/14/18 5/325 (*)] Cephalexin [Keflex (RX)] 500 mg PO TID #30 cap 08/07/18 Medical Decision Making ED Course/Re-evaluation: CHIEF COMPLAINT: Blood in urine HISTORY OF PRESENT ILLNESS: The patient is a 38 y/o male complaining of having one episode of red/pink urine. The patient denies painful urination, frequent urination, rash on his penis, swollen lymph noes, unprotected sexual intercourse, abnormal discharge. He cannot recall if he ate any red food like beets recently. No fever, headache , body aches, lightheadedness, chest pain, heart palpitations, shortness of breath, cough, abdominal pain, bowel complaints, numbness, paresthesias. REVIEW OF SYSTEMS: A comprehensive 10 system review of systems is otherwise negative aside from elements mentioned in the history of present illness and medical decision making. PHYSICAL EXAM: HR, BP, O2 Sat, RR. Temp noted General Appearance: Alert, well hydrated, appropriate, and non-toxic appearing. Head: Atraumatic without scalp tenderness or obvious injury Eyes: Pupils equal, round, reactive to light and accommodation, EOMI, no trauma , no injection. Ears: Clear bilaterally, no perforation, normal landmarks Nose: Atraumatic, no rhinorrhea, clear. Throat: There is no erythema or exudates, no lesions, normal tonsils, mucus membranes moist. Neck: Supple, 2+ carotid upstroke, nontender, no lymphadenopathy. Respiratory: No retractions, no distress, no wheezes, and no accessory muscle use. Lungs are clear to auscultation bilaterally. Cardiovascular: Regular rate and rhythm, no murmurs, rubs, or gallops. Bilateral carotid, radial, dorsalis pedis, and posterior tibial pulses intact. Good capillary refill all extremities. Gastrointestinal: Abdomen is soft, nontender, non-distended, no masses, no rebound, no guarding, no peritoneal signs. Musculoskeletal: Normal active ROM of all extremities, atraumatic. Neurological: Alert, appropriate, and interactive. The patient has normal DTRs and non-focal cranial nerves, motor, sensory, and cerebellar exam. Skin: No rashes, good turgor, no nodules on palpation. Past medical history: Left spontaneous pneumothorax, depression, PTSD, seizures , spine fracture, osteoporosis Past surgical history: Deviated septum repair Family history: Denies Social history: Lives in [place], single, employed DIAGNOSTICS/PROCEDURES/CRITICAL CARE TIME: Not indicated. DIFFERENTIAL DIAGNOSIS: The differential diagnosis for the patient's urinary symptoms included but was not limited to prostatitis, cystitis, medication side effect, neurologic causes , and infection. MEDICAL DECISION MAKING: The patient is a 38 y/o male complaining of having one episode of red/pink urine. The patient denies painful urination, frequent urination, rash on his penis, swollen lymph noes, unprotected sexual intercourse, abnormal discharge. The patient has a normal physical exam. UA ordered. 1435: Patient's UA reveals RBC's and WBC's, however he insists he is not having any pain. I do not suspect he is having a kidney stone as he is having no pain. His symptoms are consistent with a prostatitis or cystitis. 1440: Reassessed patient and discussed UA findings. I have prescribed him Keflex for the cystitis and advised him to follow up with a urologist. Return precautions provided; patient is comfortable with this plan. - Data Points Laboratory Results: 08/07/18 08/07/18 14:18 14:18 Urine Color RED Urine Appearance MODERATELY TURBID Urine pH 6.0 (5.0-7.5) Ur Specific Rupert 1.019 (1.002-1.030) Urine Protein 2+ H (NEGATIVE) Urine Ketones NEGATIVE (NEGATIVE) Urine Blood 3+ H (NEGATIVE) Urine Nitrate NEGATIVE (NEGATIVE) Urine Bilirubin NEGATIVE (NEGATIVE) Urine Urobilinogen NEGATIVE EU EU (0.2-1.0) Ur Leukocyte Esterase NEGATIVE (NEGATIVE) Urine RBC 50-182 /hpf H /hpf (0-3) Urine WBC 25-50 /hpf H /hpf (0-3) Ur Epithelial Cells NONE SEEN /lpf /lpf (NONE-1+) Urine Bacteria 2+ /hpf H /hpf (NONE SEEN) Urine Mucus TRACE /lpf /lpf (NONE-1+) Urine Yeast PRESENT /hpf /hpf (NONE SEEN) Urine Glucose NEGATIVE (NEGATIVE) C.trachomatis RNA (TMA) Pending N.gonorrhoeae RNA (TMA) Pending Departure - Departure Disposition: Home, Routine, Self-Care Clinical Impression: Cystitis Blood in urine Qualifiers: Hematuria type: gross Qualified Code(s): R31.0 - Gross hematuria Condition: Good Instructions: Urinary Tract Infection in Men (ED), Hematuria (ED) Additional Instructions: 1. Take Keflex as prescribed. 2. Follow-up with your primary doctor within 72 hours. 3. Return to the Emergency Department for fever, worsening pain, flank pain or failure to improve within 72 hours. Referrals: Remi Reyna MD [Medical Doctor] - As per Instructions Prescriptions: Cephalexin [Keflex (RX)] 500 mg PO TID #30 cap Report Scribed for: Prince Go Report Scribed by: Margaret Case Date of Report: 08/07/18 Time of Report: 13:48
[2018-08-08 10:39] LABS: GC AMPLIFICATION GENPROBE NEGATIVE (NEGATIVE)
== END 2018-08-07 14:44 | disposition home or self-care (01) ==
DX: R31.0 Gross hematuria (principal); N30.90 Cystitis, unspecified without hematuria